=== PATIENT | male | born 1955 | race Caucasian/White ===

== ENCOUNTER 2022-11-28 12:16 | Inpatient (IN) | payer MEDICARE, BC ==
[2022-11-28] VITALS (15 sets, daily range): BP systolic 102–190; BP diastolic 65–125
[~2022-11-28] VITALS: Ht 172.7 cm; Wt 78.6 kg
[2022-11-28 16:26] LABS: ABG BASE EXCESS -4.9 mmol/L (-2.0-2.0); ABG HCO3 21.4 mmol/L (22.0-26.0); ABG OXYGEN SATURATION 87.5 % (94-97); ABG PCO2 (T) 44.3 mmHg (35.0-48.0); ABG PO2 (T) 60.6 mmHg (75.0-100.0); ALLEN'S TEST POSITIVE; FCOHb 0.3 % (0.0-3.9); FMetHb 0.5 % (0.0-1.5); FO2Hb 86.8 % (94-97); PEEP 5 cm H2O; RESPIRATORY RATE 16 b/min; TIDAL VOLUME 500 mL
[2022-11-28] MEDS: normal saline 1000ml 1,000 ML IV SCH (16:35)
[2022-11-28] MEDS ORDERED: propofol 1000mg/100ml bottle 100 ML IV SCH (16:35)
[2022-11-28] MEDS ORDERED: propofol 1000mg/100ml bottle 100 ML IV ONE (16:41)
[2022-11-28] MEDS ORDERED: labetalol 20mg/4ml (5mg/ml) syringe IV ONE ×2 (16:49→16:51)
[2022-11-28] MEDS ORDERED: labetalol 20mg/4ml (5mg/ml) syringe IV PRN (17:00)
[2022-11-28] MEDS ORDERED: POTASSIUM BICARB 20meq eff tab 20 MEQ TABLET.EFF PO PRN ×2 (17:35)
[2022-11-28] MEDS ORDERED: ondansetron/PF 4mg/2ml inj IV PRN (17:35)
[2022-11-28] MEDS ORDERED: normal saline 1000ml 1,000 ML IV SCH (17:35)
[2022-11-28] MEDS ORDERED: magnesium hydroxide 30ml (MOM) UD suspension PO PRN (17:35)
[2022-11-28] MEDS ORDERED: acetaminophen 325mg tablet PO PRN ×2 (17:35)
--- NOTE | 2022-11-28 17:44 | NUR ---
Pt arrived via [facility] approximately 1600. Pt hypertensive, hypothermic and unresponsive. Pt R pupil 5mm, brisk. L pupil 4mm, brisk. No corneal reflex. Minimal gag reflex. Pt does not w/d to pain in any extremities. Per EMS, pt was given 10mg Versed in transportation. RN notified MD of hypertension. See new orders. Addendum: 11/28/22 at 1748 by Enedina Singh RN Pt extremities cyanotic. Pt has multiple bruises on bilat flank as well as his back, BUE, and BLE. Pt has blanchable redness to coccyx and BLE heels. Pt also has blister to his L Heel. See new orders for wound care. Addendum: 11/28/22 at 1751 by Enedina Singh RN Pt arrived w/ slade diaz and DANNA bull.
[2022-11-28] MEDS ORDERED: LIDOcaine 2% 10ml TOPICAL JELLY (Urojet) TP ONE (18:07)
--- NOTE | 2022-11-28 18:34 | NUR ---
Patient in room CICU 2008. I have received report from Erum LAZAR and had the opportunity to ask questions and assume patient care.
[2022-11-28] MEDS ORDERED: TIOT18CA3 INH (19:05)
[2022-11-28] MEDS ORDERED: ZOLP-240 PO (19:05)
[2022-11-28] MEDS ORDERED: BOSU100T PO (19:05)
[2022-11-28] MEDS ORDERED: BREX1TAB PO (19:05)
[2022-11-28] MEDS ORDERED: OXYC1TAB17 PO (19:05)
[2022-11-28] MEDS ORDERED: FLUT1BLS9 INH (19:05)
[2022-11-28] MEDS ORDERED: IBUP-1986 PO (19:05)
[2022-11-28] MEDS ORDERED: LIDO700A47 TOP (19:05)
[2022-11-28] MEDS ORDERED: BACL-11 PO (19:05)
[2022-11-28] MEDS ORDERED: ZOLP10TA PO (19:05)
[2022-11-28] MEDS ORDERED: BIMA2.5D EACHEYE (19:05)
[2022-11-28] MEDS ORDERED: DULO60CA65 PO (19:05)
[2022-11-28] MEDS ORDERED: ALBU18HF2 PO (19:06)
[2022-11-28] MEDS: hydrALAZINE 20mg/ml inj. IV SCH ×2 (19:45→19:49)
[2022-11-28] MEDS: metoprolol tartrate 50mg tablet NG SCH ×2 (19:47→19:48)
[2022-11-28] MEDS: thiamine 100mg/ml 2ml inj. IV SCH (19:49)
[2022-11-28] MEDS: propofol 1000mg/100ml bottle 100 ML IV SCH (19:52)
[2022-11-28 20:15] LABS: CLARITY,URINE CLEAR (Clear); COLOR,URINE YELLOW (Yellow); GLUCOSE, URINE NEGATIVE (Neg); KETONES,URINE NEGATIVE (Neg); LEUKOCYTE ESTERASE ,URINE NEGATIVE (Neg); NITRITES, URINE NEGATIVE (Neg); OCCULT BLOOD,URINE NEGATIVE (Neg); PROTEIN,URINE NEGATIVE (Neg); UROBILINOGEN,URINE 0.2 E.U/dL (0.2-1.0)
[2022-11-28 20:16] LABS: BASOPHILS # (AUTO) 0.1 X10'3 (0-0.2); BASOPHILS % (AUTO) 0.3 % (0-1); EOSINOPHILS % (AUTO) 0 % (0-6); HEMATOCRIT 31.2 % (42.0-52.0); HEMOGLOBIN 10.2 g/dl (14.0-17.9); LYMPHOCYTES # (AUTO) 1.9 X10'3 (1.1-4.8); LYMPHOCYTES % (AUTO) 8.1 % (21-51); MEAN CORPUSCULAR HGB CONC 32.6 g/dL (33.0-36.5); MEAN CORPUSCULAR VOLUME 101.2 FL (78-98); MEAN PLATELET VOLUME 10.9 FL (7.4-10.4); MONOCYTES # (AUTO) 2.5 X10'3 (0-0.9); MONOCYTES % (AUTO) 10.6 % (2-12); NEUTROPHILS # (AUTO) 18.8 X10'3 (1.8-7.7); PLATELET COUNT 205 X10'3 (140-440); RED BLOOD COUNT 3.09 X10'6 (4.70-6.10); RED CELL DISTRIBUTION WIDTH 15.9 % (11.5-14.5); WHITE BLOOD COUNT 23.2 X10'3 (4.5-11.0)
[2022-11-28 20:20] LABS: UA COLLECTION TYPE NON-SPECIFIED
[2022-11-28 20:28] LABS: APTT 25 SECONDS (22-32)
[2022-11-28 20:31] LABS: ALANINE AMINOTRANSFERASE 73 U/L (12-78); ALBUMIN 1.9 G/DL (3.4-5.0); ALBUMIN/GLOBULIN RATIO 0.6 (1.1-1.5); ALKALINE PHOSPHATASE 58 IU/L (46-116); ANION GAP 7 (8-16); ASPARTATE AMINO TRANSFERASE 34 U/L (10-37); BILIRUBIN,TOTAL 0.2 MG/DL (0.1-1.0); BLOOD UREA NITROGEN 8 MG/DL (7-18); BUN/CREATININE RATIO 11.8 (5.4-32.0); CALCIUM 7.2 MG/DL (8.5-10.1); CHLORIDE 105 MMOL/L (99-107); CREATININE 0.68 MG/DL (0.60-1.10); GLUCOSE 121 MG/DL (70-104); MAGNESIUM 1.8 MG/DL (1.5-2.4); PHOSPHORUS 2.9 MG/DL (2.3-4.5); POTASSIUM 4.3 MMOL/L (3.5-5.1); SODIUM 137 MMOL/L (135-145); TOTAL CARBON DIOXIDE 24.6 MMOL/L (24-32); TOTAL PROTEIN 5.3 G/DL (6.4-8.2); TRIGLYCERIDES 73 MG/DL (20-135); eGFR > 90 ML/MIN
[2022-11-28] MEDS: vancomycin/NS 1 GM ADD-VANTAGE 250 ML IV SCH (21:25)
[2022-11-28] MEDS: folic acid 1mg/0.2ml inj IV SCH (21:26)
[2022-11-28 22:49] LABS: LARGE PLATELETS FEW; NUCLEATED RED BLOOD CELLS 2 /100WBC (0-0); PLATELET ESTIMATE NORMAL; TOTAL CELLS COUNTED 100
[2022-11-28 22:50] LABS: SMUDGE CELLS 1+
[2022-11-28 22:51] LABS: TARGET CELLS 2+
[2022-11-28 22:52] LABS: BURR CELLS FEW
[2022-11-28 22:53] LABS: SCHISTOCYTES FEW
[2022-11-29] VITALS (32 sets, daily range): BP systolic 97–163; BP diastolic 50–97
[2022-11-29] MEDS: cefepime 1GM/NS ADD-VANTAGE 100 ML IV SCH ×4 (00:19→23:58)
[2022-11-29] MEDS: hydrALAZINE 20mg/ml inj. IV SCH ×3 (00:19→08:00)
[2022-11-29] MEDS: normal saline 1000ml 1,000 ML IV SCH ×4 (01:45→20:53)
[2022-11-29] MEDS: metoprolol tartrate 50mg tablet NG SCH ×4 (02:04→20:46)
[2022-11-29 02:58] LABS: BASOPHILS % (AUTO) 0.1 % (0-1); EOSINOPHILS % (AUTO) 0 % (0-6); PLATELET COUNT 231 X10'3 (140-440)
[2022-11-29 03:00] LABS: HEMATOCRIT 32.5 % (42.0-52.0); HEMOGLOBIN 10.6 g/dl (14.0-17.9); LYMPHOCYTES # (AUTO) 2.6 X10'3 (1.1-4.8); LYMPHOCYTES % (AUTO) 11.9 % (21-51); MEAN CORPUSCULAR HGB CONC 32.5 g/dL (33.0-36.5); MEAN CORPUSCULAR VOLUME 101.3 FL (78-98); MEAN PLATELET VOLUME 11.5 FL (7.4-10.4); MONOCYTES % (AUTO) 13.6 % (2-12); NEUTROPHILS # (AUTO) 16.2 X10'3 (1.8-7.7); NEUTROPHILS % (AUTO) 74.4 % (42-75); RED BLOOD COUNT 3.21 X10'6 (4.70-6.10); RED CELL DISTRIBUTION WIDTH 16.2 % (11.5-14.5); WHITE BLOOD COUNT 21.8 X10'3 (4.5-11.0)
[2022-11-29 03:03] LABS: APTT 26 SECONDS (22-32)
[2022-11-29] MEDS: propofol 1000mg/100ml bottle 100 ML IV SCH (03:22)
[2022-11-29 03:26] LABS: ALANINE AMINOTRANSFERASE 70 U/L (12-78); ALBUMIN/GLOBULIN RATIO 0.6 (1.1-1.5); ALKALINE PHOSPHATASE 56 IU/L (46-116); ANION GAP 6 (8-16); ASPARTATE AMINO TRANSFERASE 32 U/L (10-37); BILIRUBIN,TOTAL 0.3 MG/DL (0.1-1.0); BLOOD UREA NITROGEN 9 MG/DL (7-18); BUN/CREATININE RATIO 12.9 (5.4-32.0); CALCIUM 7.6 MG/DL (8.5-10.1); CHLORIDE 106 MMOL/L (99-107); GLUCOSE 112 MG/DL (70-104); MAGNESIUM 1.9 MG/DL (1.5-2.4); PHOSPHORUS 2.4 MG/DL (2.3-4.5); POTASSIUM 3.9 MMOL/L (3.5-5.1); SODIUM 138 MMOL/L (135-145); TOTAL CARBON DIOXIDE 26.1 MMOL/L (24-32); TOTAL PROTEIN 5.3 G/DL (6.4-8.2); TRIGLYCERIDES 110 MG/DL (20-135); eGFR > 90 ML/MIN
[2022-11-29 03:39] LABS: ABG BASE EXCESS 1.4 mmol/L (-2.0-2.0); ABG HCO3 24.1 mmol/L (22.0-26.0); ABG OXYGEN SATURATION 92.2 % (94-97); ABG PCO2 (T) 31.4 mmHg (35.0-48.0); ABG PO2 (T) 58.6 mmHg (75.0-100.0); ALLEN'S TEST POSITIVE; FCOHb 0.3 % (0.0-3.9); FMetHb 0.3 % (0.0-1.5); FO2Hb 91.6 % (94-97); PATIENT TEMPERATURE 36.7; PEEP 5 cm H2O; RESPIRATORY RATE 16 b/min; TIDAL VOLUME 500 mL; TOTAL HEMOGLOBIN 10.9 G/dl (14.0-17.9)
--- NOTE | 2022-11-29 06:06 | NUR ---
Problems reprioritized. Patient report given, questions answered & plan of care reviewed with Erum LAZAR.
[2022-11-29] MEDS: vancomycin/NS 1 GM ADD-VANTAGE 250 ML IV SCH ×2 (07:30→20:45)
[2022-11-29] MEDS: levoFLOXACIN-Levaquin 750MG/D5 150 ML IV SCH (07:33)
[2022-11-29] MEDS: thiamine 100mg/ml 2ml inj. IV SCH ×2 (07:35→20:45)
[2022-11-29] MEDS: folic acid 1mg/0.2ml inj IV SCH (07:35)
[2022-11-29] MEDS ORDERED: MVI, adult No.4 with vit. K 10 ML in dextrose 5% water 500ml 500 ML IV SCH ×2 (08:00)
[2022-11-29] MEDS: K and/or MAG REPLACEMENT MC SCH (08:00)
--- NOTE | 2022-11-29 11:43 | NUR ---
0630 -- Propofol turned off. Neuro assessment completed at 0800. Pt has cough/gag/corneal. No w/d to pain. 0900 - Pt at bedside. Updated on pt status and GOC. RN obtained admission information from at bedside. PT informed the RN that pt WAS drinking up until the day they went into [facility], unlike the note documented on his admission history. also informed RN that pt is very combative/aggressive/non-compliant when awake. Dr. Montalvo notified of pt neuro status. No change in orders. Rounds complete. See new orders. Wound care at bedside to assess pt skin. L heel determined to be pressure injury. RN will photograph.
[2022-11-29] MEDS ORDERED: hydrALAZINE 20mg/ml inj. IV PRN (11:50)
[2022-11-29] MEDS ORDERED: acetaminophen 325mg/10.15ml oral unit dose solution NG PRN ×2 (12:01)
[2022-11-29] MEDS ORDERED: POTASSIUM BICARB 20meq eff tab 20 MEQ TABLET.EFF NG PRN (12:02)
[2022-11-29] MEDS ORDERED: magnesium hydroxide 30ml (MOM) UD suspension NG PRN (12:02)
--- NOTE | 2022-11-29 12:06 | NUR ---
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 SO not at bedside when RD present and unable to obtain information from pt d/t intubation. No scaled wt hx in EMR, first scaled wt is 124% IBW. No visible fat or muscle wasting appreciated. Pt documented with mild edema and flaccid muscle strength, though possibly r/t intubation. Pt currently lacks a minimum of two criteria for malnutrition though at a high risk r/t EtOH hx. Pt receiving routine Thiamine and Folic acid, agrees to routine MVI. Pt admit for acute respiratory failure with ALOC and bilat PNA. Per RN Propofol has been off since beginning of day shift. Will monitor for resumption of Propofol and need to adjust TF recs. Noted pt with a low Abdirizak of 10, wound care has been consulted, assessment pending at this time. Will continue to follow closely. Recommendations: 1) Continuous Vital AF via NGT with 80 mL/hr goal rate to provide 1920 mL total volume/day, 2304 kcal, 144 g protein, and 1557 mL water 2) Additional 125 mL water flush Q4H; monitor serum Na 3) Prealbumin q Monday/ 4) Daily scaled weights 5) Routine bowel care 6) Routine Thiamine, Folic acid, and MVI given EtOH hx c/elevated MCV 7) Monitor Propofol rate and adjust TF recs as appropriate; Propofol held 11/29 Addendum: 11/29/22 at [address] Amended: Links added.
[2022-11-29] MEDS: pantoprazole 40MG/NS 100ML BAG 100 ML IV SCH (12:42)
[2022-11-29] MEDS: MULTIVIT-MIN/FERROUS GLUCONATE 9 MG/15 ML LIQUID NG SCH (12:43)
--- NOTE | 2022-11-29 14:19 | NUR ---
Fax from [facility] of sputum culture given to .
[2022-11-29] MEDS: albuterol 2.5 MG/3 ML nebule NEB SCH ×2 (14:43→19:46)
[2022-11-29] MEDS: heparin, porcine 5000 units/ml vial SQ SCH ×2 (15:00→23:59)
[2022-11-29] MEDS ORDERED: insulin Lispro (HumaLOG) vial - multi-dose SQ SCH (16:40)
[2022-11-29] MEDS ORDERED: glucagon, human recombinant 1mg kit SUBCUT PRN (16:40)
[2022-11-29] MEDS ORDERED: DEXTROSE 15 GM of carb/4 tabs (each vial/BOTTLE has 4 tablets) PO PRN ×2 (16:40)
[2022-11-29] MEDS ORDERED: dextrose 50%-water 50ml dispensing syringe IV PRN (16:40)
[2022-11-29] MEDS ORDERED: dextrose 50%-water 50ml dispensing syringe IV ONE (16:44)
[2022-11-29] MEDS: dextrose 50%-water 50ml dispensing syringe IV PRN ×2 (17:22→21:08)
--- NOTE | 2022-11-29 18:45 | NUR ---
Patient in room CICU 2008. I have received report from Erum LAZAR and had the opportunity to ask questions and assume patient care.
[2022-11-29] MEDS: ipratropium 0.5 MG/2.5ML nebule IH SCH (19:47)
[2022-11-29] MEDS: insulin glargine (Lantus) pen - multi-dose SQ SCH (21:00)
[2022-11-30] VITALS (34 sets, daily range): BP systolic 126–162; BP diastolic 70–85
[2022-11-30] MEDS: albuterol 2.5 MG/3 ML nebule NEB SCH ×3 (01:04→07:16)
[2022-11-30] MEDS: ipratropium 0.5 MG/2.5ML nebule IH SCH ×3 (01:04→07:16)
[2022-11-30] MEDS: metoprolol tartrate 50mg tablet NG SCH ×4 (02:13→20:41)
[2022-11-30 02:52] LABS: BASOPHILS # (AUTO) 0.1 X10'3 (0-0.2); BASOPHILS % (AUTO) 0.6 % (0-1); EOSINOPHILS % (AUTO) 0.2 % (0-6); HEMATOCRIT 30.4 % (42.0-52.0); HEMOGLOBIN 9.9 g/dl (14.0-17.9); LYMPHOCYTES # (AUTO) 3.3 X10'3 (1.1-4.8); LYMPHOCYTES % (AUTO) 17.6 % (21-51); MEAN CORPUSCULAR HEMOGLOBIN 33.1 PG (27.0-31.0); MEAN CORPUSCULAR HGB CONC 32.7 g/dL (33.0-36.5); MEAN CORPUSCULAR VOLUME 101.1 FL (78-98); MONOCYTES # (AUTO) 2.5 X10'3 (0-0.9); MONOCYTES % (AUTO) 13.7 % (2-12); NEUTROPHILS # (AUTO) 12.6 X10'3 (1.8-7.7); NEUTROPHILS % (AUTO) 67.9 % (42-75); PLATELET COUNT 252 X10'3 (140-440); RED CELL DISTRIBUTION WIDTH 15.9 % (11.5-14.5); WHITE BLOOD COUNT 18.5 X10'3 (4.5-11.0)
[2022-11-30 03:07] LABS: APTT 25 SECONDS (22-32)
[2022-11-30 03:13] LABS: ALANINE AMINOTRANSFERASE 96 U/L (12-78); ALBUMIN 1.9 G/DL (3.4-5.0); ALBUMIN/GLOBULIN RATIO 0.6 (1.1-1.5); ALKALINE PHOSPHATASE 60 IU/L (46-116); ANION GAP 7 (8-16); ASPARTATE AMINO TRANSFERASE 68 U/L (10-37); BILIRUBIN,TOTAL 0.4 MG/DL (0.1-1.0); BLOOD UREA NITROGEN 12 MG/DL (7-18); CALCIUM 7.5 MG/DL (8.5-10.1); CHLORIDE 105 MMOL/L (99-107); CREATININE 0.75 MG/DL (0.60-1.10); GLUCOSE 108 MG/DL (70-104); MAGNESIUM 1.8 MG/DL (1.5-2.4); POTASSIUM 3.3 MMOL/L (3.5-5.1); SODIUM 137 MMOL/L (135-145); TOTAL CARBON DIOXIDE 24.7 MMOL/L (24-32); TOTAL PROTEIN 5.2 G/DL (6.4-8.2); eGFR > 90 ML/MIN
[2022-11-30 03:32] LABS: ABG BASE EXCESS -0.7 mmol/L (-2.0-2.0); ABG HCO3 22.4 mmol/L (22.0-26.0); ABG OXYGEN SATURATION 94.6 % (94-97); ABG PCO2 (T) 32.1 mmHg (35.0-48.0); ABG PO2 (T) 77.1 mmHg (75.0-100.0); ALLEN'S TEST POSITIVE; FCOHb 0.2 % (0.0-3.9); FMetHb 0.5 % (0.0-1.5); FO2Hb 93.9 % (94-97); PATIENT TEMPERATURE 37.4; PEEP 5 cm H2O; RESPIRATORY RATE 16 b/min; TIDAL VOLUME 500 mL; TOTAL HEMOGLOBIN 10.7 G/dl (14.0-17.9)
[2022-11-30] MEDS: POTASSIUM BICARB 20meq eff tab 20 MEQ TABLET.EFF NG PRN ×3 (04:15→13:29)
[2022-11-30 04:41] LABS: LARGE PLATELETS FEW; NUCLEATED RED BLOOD CELLS 2 /100WBC (0-0); PLATELET ESTIMATE NORMAL; SMUDGE CELLS 1+; TARGET CELLS 2+; TOTAL CELLS COUNTED 100
[2022-11-30 04:42] LABS: BURR CELLS FEW; SCHISTOCYTES FEW
[2022-11-30] MEDS: K and/or MAG REPLACEMENT MC SCH (06:45)
--- NOTE | 2022-11-30 06:45 | NUR ---
Problems reprioritized. Patient report given, questions answered & plan of care reviewed with Lisa LAZAR.
--- NOTE | 2022-11-30 06:47 | NUR ---
Received report from NAGI Chowdhury
[2022-11-30] MEDS: propofol 1000mg/100ml bottle 100 ML IV SCH (07:11)
[2022-11-30] MEDS: normal saline 1000ml 1,000 ML IV SCH ×2 (07:25→16:35)
[2022-11-30] MEDS ORDERED: VANCOMYCIN LEVEL IV ONE (07:30)
[2022-11-30] MEDS: levoFLOXACIN-Levaquin 750MG/D5 150 ML IV SCH (08:49)
[2022-11-30] MEDS: pantoprazole 40MG/NS 100ML BAG 100 ML IV SCH (08:49)
[2022-11-30] MEDS: folic acid 1mg/0.2ml inj IV SCH (08:49)
[2022-11-30] MEDS: VANCOmycin 1250MG/NS 250ml Bag 250 ML IV SCH ×2 (08:51→20:42)
[2022-11-30] MEDS: cefepime 1GM/NS ADD-VANTAGE 100 ML IV SCH ×2 (08:52→16:00)
[2022-11-30] MEDS: thiamine 100mg/ml 2ml inj. IV SCH ×2 (08:57→20:41)
[2022-11-30] MEDS: heparin, porcine 5000 units/ml vial SQ SCH ×2 (08:58→16:04)
[2022-11-30] MEDS: MULTIVIT-MIN/FERROUS GLUCONATE 9 MG/15 ML LIQUID NG SCH (08:58)
[2022-11-30] MEDS: ipratropium/albuterol 3ml nebule NEB SCH ×4 (10:58→23:33)
[2022-11-30] MEDS ORDERED: insulin regular, human U-100 3ml vial - multi-dose SQ SCH (11:37)
[2022-11-30] MEDS: Neutra Phos packet PO SCH ×2 (13:29→20:40)
[2022-11-30] MEDS: insulin glargine (Lantus) pen - multi-dose SQ SCH (21:00)
[2022-12-01] VITALS (35 sets, daily range): BP systolic 123–166; BP diastolic 66–88
[2022-12-01] MEDS: heparin, porcine 5000 units/ml vial SQ SCH ×3 (00:28→15:43)
[2022-12-01] MEDS: cefepime 1GM/NS ADD-VANTAGE 100 ML IV SCH ×3 (00:29→15:43)
[2022-12-01] MEDS: metoprolol tartrate 50mg tablet NG SCH ×4 (02:03→20:29)
[2022-12-01 02:51] LABS: BASOPHILS # (AUTO) 0.1 X10'3 (0-0.2); BASOPHILS % (AUTO) 0.4 % (0-1); EOSINOPHILS # (AUTO) 0.1 X10'3 (0-0.9); EOSINOPHILS % (AUTO) 0.4 % (0-6); HEMATOCRIT 29.8 % (42.0-52.0); HEMOGLOBIN 9.7 g/dl (14.0-17.9); LYMPHOCYTES # (AUTO) 2.4 X10'3 (1.1-4.8); LYMPHOCYTES % (AUTO) 15.2 % (21-51); MEAN CORPUSCULAR HEMOGLOBIN 32.8 PG (27.0-31.0); MEAN CORPUSCULAR HGB CONC 32.7 g/dL (33.0-36.5); MEAN CORPUSCULAR VOLUME 100.4 FL (78-98); MEAN PLATELET VOLUME 10.8 FL (7.4-10.4); MONOCYTES # (AUTO) 2.6 X10'3 (0-0.9); NEUTROPHILS # (AUTO) 10.9 X10'3 (1.8-7.7); PLATELET COUNT 248 X10'3 (140-440); RED BLOOD COUNT 2.97 X10'6 (4.70-6.10); RED CELL DISTRIBUTION WIDTH 15.8 % (11.5-14.5)
[2022-12-01 03:05] LABS: ALANINE AMINOTRANSFERASE 193 U/L (12-78); ALBUMIN 1.7 G/DL (3.4-5.0); ALBUMIN/GLOBULIN RATIO 0.5 (1.1-1.5); ALKALINE PHOSPHATASE 76 IU/L (46-116); ANION GAP 4 (8-16); ASPARTATE AMINO TRANSFERASE 131 U/L (10-37); BILIRUBIN,TOTAL 0.5 MG/DL (0.1-1.0); BLOOD UREA NITROGEN 10 MG/DL (7-18); BUN/CREATININE RATIO 12.8 (5.4-32.0); CALCIUM 7.6 MG/DL (8.5-10.1); CHLORIDE 104 MMOL/L (99-107); CREATININE 0.78 MG/DL (0.60-1.10); GLUCOSE 117 MG/DL (70-104); MAGNESIUM 1.7 MG/DL (1.5-2.4); PHOSPHORUS 3.1 MG/DL (2.3-4.5); POTASSIUM 3.6 MMOL/L (3.5-5.1); PREALBUMIN 16.3 MG/DL (19-36); SODIUM 135 MMOL/L (135-145); TOTAL PROTEIN 5.1 G/DL (6.4-8.2); TRIGLYCERIDES 92 MG/DL (20-135); eGFR > 90 ML/MIN
[2022-12-01 03:59] LABS: ABG BASE EXCESS 0.3 mmol/L (-2.0-2.0); ABG HCO3 23.2 mmol/L (22.0-26.0); ABG PO2 (T) 79.8 mmHg (75.0-100.0); ALLEN'S TEST POSITIVE; FCOHb 0.2 % (0.0-3.9); FMetHb 0.3 % (0.0-1.5); FO2Hb 94.5 % (94-97); PATIENT TEMPERATURE 37.4; PEEP 5 cm H2O; RESPIRATORY RATE 16 b/min; TIDAL VOLUME 500 mL; TOTAL HEMOGLOBIN 10.7 G/dl (14.0-17.9)
[2022-12-01] MEDS: ipratropium/albuterol 3ml nebule NEB SCH ×6 (04:08→23:05)
[2022-12-01 04:43] LABS: APTT 26 SECONDS (22-32)
[2022-12-01] MEDS: MULTIVIT-MIN/FERROUS GLUCONATE 9 MG/15 ML LIQUID NG SCH (07:58)
[2022-12-01] MEDS: pantoprazole 40MG/NS 100ML BAG 100 ML IV SCH (07:59)
[2022-12-01] MEDS: Neutra Phos packet PO SCH ×3 (07:59→20:29)
[2022-12-01] MEDS: thiamine 100mg/ml 2ml inj. IV SCH ×2 (07:59→20:29)
[2022-12-01] MEDS: levoFLOXACIN-Levaquin 750MG/D5 150 ML IV SCH (07:59)
[2022-12-01] MEDS: K and/or MAG REPLACEMENT MC SCH (08:00)
[2022-12-01] MEDS: folic acid 1mg/0.2ml inj IV SCH (08:01)
[2022-12-01] MEDS: VANCOmycin 1250MG/NS 250ml Bag 250 ML IV SCH ×2 (08:01→20:29)
[2022-12-01] MEDS ORDERED: albumin (human) 25% 100 ML IV solution IV ONE (08:30)
[2022-12-01] MEDS: normal saline 1000ml 1,000 ML IV SCH ×3 (08:35→13:00)
--- NOTE | 2022-12-01 13:22 | NUR ---
Abdirizak f/u: Abdirizak Bush w/ L heel DTI per [facility] note; TF recs below meeting estimated needs. Addendum: 12/01/22 at [address] Amended: Links added.
[2022-12-01] MEDS ORDERED: VANCOMYCIN LEVEL IV ONE (20:30)
[2022-12-02] VITALS (34 sets, daily range): BP systolic 124–168; BP diastolic 66–86
[2022-12-02] MEDS: heparin, porcine 5000 units/ml vial SQ SCH ×4 (00:13→23:15)
[2022-12-02] MEDS: cefepime 1GM/NS ADD-VANTAGE 100 ML IV SCH ×4 (00:14→23:14)
[2022-12-02] MEDS ORDERED: albumin (human) 25% 100 ML IV solution IV ONE (00:30)
[2022-12-02] MEDS: metoprolol tartrate 50mg tablet NG SCH ×4 (01:50→20:20)
[2022-12-02] MEDS: ipratropium/albuterol 3ml nebule NEB SCH ×6 (02:36→23:06)
[2022-12-02 02:37] LABS: EOSINOPHILS # (AUTO) 0.1 X10'3 (0-0.9); EOSINOPHILS % (AUTO) 0.5 % (0-6); HEMOGLOBIN 8.7 g/dl (14.0-17.9); MEAN PLATELET VOLUME 10.8 FL (7.4-10.4); NEUTROPHILS # (AUTO) 15.1 X10'3 (1.8-7.7)
[2022-12-02 02:39] LABS: BASOPHILS % (AUTO) 0.2 % (0-1); HEMATOCRIT 25.7 % (42.0-52.0); LYMPHOCYTES # (AUTO) 3.4 X10'3 (1.1-4.8); LYMPHOCYTES % (AUTO) 15.8 % (21-51); MEAN CORPUSCULAR HEMOGLOBIN 33.8 PG (27.0-31.0); MEAN CORPUSCULAR HGB CONC 33.8 g/dL (33.0-36.5); MEAN CORPUSCULAR VOLUME 100.2 FL (78-98); MONOCYTES # (AUTO) 2.7 X10'3 (0-0.9); MONOCYTES % (AUTO) 12.7 % (2-12); NEUTROPHILS % (AUTO) 70.8 % (42-75); PLATELET COUNT 256 X10'3 (140-440); RED BLOOD COUNT 2.57 X10'6 (4.70-6.10); RED CELL DISTRIBUTION WIDTH 15.3 % (11.5-14.5); WHITE BLOOD COUNT 21.3 X10'3 (4.5-11.0)
[2022-12-02 02:47] LABS: APTT 27 SECONDS (22-32)
[2022-12-02 02:54] LABS: ALANINE AMINOTRANSFERASE 185 U/L (12-78); ALBUMIN 2.8 G/DL (3.4-5.0); ALBUMIN/GLOBULIN RATIO 0.9 (1.1-1.5); ALKALINE PHOSPHATASE 80 IU/L (46-116); ANION GAP 9 (8-16); ASPARTATE AMINO TRANSFERASE 96 U/L (10-37); BILIRUBIN,TOTAL 0.6 MG/DL (0.1-1.0); BLOOD UREA NITROGEN 12 MG/DL (7-18); BUN/CREATININE RATIO 14.8 (5.4-32.0); CALCIUM 8.2 MG/DL (8.5-10.1); CHLORIDE 101 MMOL/L (99-107); CREATININE 0.81 MG/DL (0.60-1.10); GLUCOSE 121 MG/DL (70-104); MAGNESIUM 1.6 MG/DL (1.5-2.4); PHOSPHORUS 3.5 MG/DL (2.3-4.5); POTASSIUM 3.9 MMOL/L (3.5-5.1); SODIUM 135 MMOL/L (135-145); TOTAL CARBON DIOXIDE 25.5 MMOL/L (24-32); TOTAL PROTEIN 5.8 G/DL (6.4-8.2); eGFR > 90 ML/MIN
[2022-12-02 03:33] LABS: ABG BASE EXCESS 0.8 mmol/L (-2.0-2.0); ABG HCO3 23.6 mmol/L (22.0-26.0); ABG OXYGEN SATURATION 92.7 % (94-97); ABG PCO2 (T) 31.9 mmHg (35.0-48.0); ALLEN'S TEST Modified; FCOHb 0.3 % (0.0-3.9); FMetHb 0.4 % (0.0-1.5); FO2Hb 92.1 % (94-97); PATIENT TEMPERATURE 37.4; PEEP 5 cm H2O; RESPIRATORY RATE 16 b/min; TIDAL VOLUME 500 mL; TOTAL HEMOGLOBIN 9.5 G/dl (14.0-17.9)
[2022-12-02 03:52] LABS: GIANT PLATELET FEW; NUCLEATED RED BLOOD CELLS 3 /100WBC (0-0); PLATELET ESTIMATE NORMAL; TOTAL CELLS COUNTED 100
[2022-12-02 03:53] LABS: BURR CELLS FEW; LARGE PLATELETS FEW; SCHISTOCYTES FEW
[2022-12-02] MEDS: levoFLOXACIN-Levaquin 750MG/D5 150 ML IV SCH (08:00)
[2022-12-02] MEDS: normal saline 1000ml 1,000 ML IV SCH ×3 (09:00→19:18)
[2022-12-02] MEDS: thiamine 100mg/ml 2ml inj. IV SCH ×2 (09:00→20:20)
[2022-12-02] MEDS: MULTIVIT-MIN/FERROUS GLUCONATE 9 MG/15 ML LIQUID NG SCH (09:01)
[2022-12-02] MEDS: Neutra Phos packet PO SCH ×3 (09:01→20:20)
[2022-12-02] MEDS: folic acid 1mg/0.2ml inj IV SCH (09:01)
[2022-12-02] MEDS: VANCOmycin 1250MG/NS 250ml Bag 250 ML IV SCH ×2 (09:01→20:20)
[2022-12-02] MEDS: pantoprazole 40MG/NS 100ML BAG 100 ML IV SCH (09:02)
[2022-12-02] MEDS ORDERED: DEXTROSE 15 GM of carb/4 tabs (each vial/BOTTLE has 4 tablets) NG PRN ×2 (11:50)
--- NOTE | 2022-12-02 12:02 | NUR ---
F/u 12/02: Pt remains intubated tolerating TF at goal GRV WNL. Rectal tube -400ml output per EMR. Will continue to monitor. Recommendations: 1) Continuous Vital AF via NGT with 80 mL/hr goal rate to provide 1920 mL total volume/day, 2304 kcal, 144 g protein, and 1557 mL water 2) Additional 125 mL water flush Q4H; monitor serum Na 3) Prealbumin q Monday/ 4) Daily scaled weights 5) Routine bowel care 6) Routine Thiamine, Folic acid, and MVI given EtOH hx c/elevated MCV Addendum: 12/02/22 at [address] Amended: Links added.
[2022-12-02] MEDS: progesterone, micronized 100mg capsule PO SCH (13:38)
[2022-12-02] MEDS: acetaZOLAMIDE IV 500mg inj IV SCH (13:39)
[2022-12-02] MEDS: caffeine citrate injection 60 MG in dextrose 5%-water 50ml 50 ML IV SCH ×2 (16:00→23:14)
[2022-12-03] VITALS (32 sets, daily range): BP systolic 92–151; BP diastolic 47–82
[2022-12-03] MEDS: metoprolol tartrate 50mg tablet NG SCH ×4 (02:00→21:07)
[2022-12-03] MEDS: ipratropium/albuterol 3ml nebule NEB SCH ×6 (02:42→23:08)
[2022-12-03 02:52] LABS: ABG BASE EXCESS -6.9 mmol/L (-2.0-2.0); ABG HCO3 16.7 mmol/L (22.0-26.0); ABG OXYGEN SATURATION 94.8 % (94-97); ABG PCO2 (T) 27.9 mmHg (35.0-48.0); ABG PO2 (T) 81.1 mmHg (75.0-100.0); ALLEN'S TEST Modified; FCOHb 0.3 % (0.0-3.9); FMetHb 0.4 % (0.0-1.5); FO2Hb 94.1 % (94-97); PEEP 5 cm H2O; RESPIRATORY RATE 14 b/min; TIDAL VOLUME 500 mL; TOTAL HEMOGLOBIN 11.3 G/dl (14.0-17.9)
[2022-12-03 03:22] LABS: EOSINOPHILS # (AUTO) 0.2 X10'3 (0-0.9); HEMOGLOBIN 9.5 g/dl (14.0-17.9); MEAN PLATELET VOLUME 10.4 FL (7.4-10.4)
[2022-12-03 03:24] LABS: BASOPHILS % (AUTO) 0.2 % (0-1); EOSINOPHILS % (AUTO) 0.8 % (0-6); HEMATOCRIT 28.4 % (42.0-52.0); LYMPHOCYTES # (AUTO) 3.9 X10'3 (1.1-4.8); LYMPHOCYTES % (AUTO) 16.4 % (21-51); MEAN CORPUSCULAR HEMOGLOBIN 34.1 PG (27.0-31.0); MEAN CORPUSCULAR HGB CONC 33.6 g/dL (33.0-36.5); MEAN CORPUSCULAR VOLUME 101.4 FL (78-98); MONOCYTES # (AUTO) 2.9 X10'3 (0-0.9); MONOCYTES % (AUTO) 12.1 % (2-12); NEUTROPHILS # (AUTO) 16.7 X10'3 (1.8-7.7); NEUTROPHILS % (AUTO) 70.5 % (42-75); PLATELET COUNT 338 X10'3 (140-440); RED CELL DISTRIBUTION WIDTH 15.8 % (11.5-14.5); WHITE BLOOD COUNT 23.6 X10'3 (4.5-11.0)
[2022-12-03 03:29] LABS: APTT 27 SECONDS (22-32)
[2022-12-03 03:34] LABS: ALANINE AMINOTRANSFERASE 191 U/L (12-78); ALBUMIN 2.6 G/DL (3.4-5.0); ALBUMIN/GLOBULIN RATIO 0.7 (1.1-1.5); ALKALINE PHOSPHATASE 91 IU/L (46-116); ANION GAP 9 (8-16); ASPARTATE AMINO TRANSFERASE 90 U/L (10-37); BILIRUBIN,TOTAL 0.5 MG/DL (0.1-1.0); BLOOD UREA NITROGEN 16 MG/DL (7-18); BUN/CREATININE RATIO 16.8 (5.4-32.0); CALCIUM 8.4 MG/DL (8.5-10.1); CHLORIDE 107 MMOL/L (99-107); CREATININE 0.95 MG/DL (0.60-1.10); GLUCOSE 122 MG/DL (70-104); MAGNESIUM 1.6 MG/DL (1.5-2.4); PHOSPHORUS 3.4 MG/DL (2.3-4.5); POTASSIUM 3.9 MMOL/L (3.5-5.1); SODIUM 135 MMOL/L (135-145); TOTAL CARBON DIOXIDE 19.2 MMOL/L (24-32); TOTAL PROTEIN 6.2 G/DL (6.4-8.2); eGFR 79 ML/MIN
[2022-12-03] MEDS: VANCOmycin 1250MG/NS 250ml Bag 250 ML IV SCH ×2 (07:29→21:08)
[2022-12-03] MEDS: pantoprazole 40MG/NS 100ML BAG 100 ML IV SCH (07:29)
[2022-12-03] MEDS: cefepime 1GM/NS ADD-VANTAGE 100 ML IV SCH ×3 (07:30→23:58)
[2022-12-03] MEDS: caffeine citrate injection 60 MG in dextrose 5%-water 50ml 50 ML IV SCH ×3 (07:32→23:35)
[2022-12-03] MEDS: folic acid 1mg/0.2ml inj IV SCH (07:57)
[2022-12-03] MEDS: levoFLOXACIN-Levaquin 750MG/D5 150 ML IV SCH (07:59)
[2022-12-03] MEDS: acetaZOLAMIDE IV 500mg inj IV SCH (07:59)
[2022-12-03] MEDS: progesterone, micronized 100mg capsule PO SCH (07:59)
[2022-12-03] MEDS: thiamine 100mg/ml 2ml inj. IV SCH ×2 (08:00→21:08)
[2022-12-03] MEDS: heparin, porcine 5000 units/ml vial SQ SCH ×3 (08:00→23:36)
[2022-12-03] MEDS: Neutra Phos packet PO SCH ×3 (08:00→21:08)
[2022-12-03] MEDS: MULTIVIT-MIN/FERROUS GLUCONATE 9 MG/15 ML LIQUID NG SCH (08:00)
[2022-12-03] MEDS ORDERED: LORazepam 2 mg/ml vial IM ONE (09:50)
[2022-12-03] MEDS ORDERED: LORazepam 2 mg/ml vial ONE (09:58)
[2022-12-03] MEDS: dexmedetomidine inj. 400 MCG in normal saline 100ml IV soln 96 ML IV SCH ×2 (11:00→21:09)
[2022-12-03] MEDS: normal saline 1000ml 1,000 ML IV SCH ×2 (11:00→20:18)
[2022-12-03 15:51] LABS: ABG BASE EXCESS -7.2 mmol/L (-2.0-2.0); ABG HCO3 15.9 mmol/L (22.0-26.0); ABG OXYGEN SATURATION 94.5 % (94-97); ABG PCO2 (T) 25.8 mmHg (35.0-48.0); ABG PO2 (T) 78.8 mmHg (75.0-100.0); ALLEN'S TEST POSITIVE; FCOHb 0.3 % (0.0-3.9); FMetHb 0.5 % (0.0-1.5); FO2Hb 93.7 % (94-97); PATIENT TEMPERATURE 37.5; PEEP 5 cm H2O; RESPIRATORY RATE 14 b/min; TIDAL VOLUME 500 mL; TOTAL HEMOGLOBIN 11.2 G/dl (14.0-17.9)
--- NOTE | 2022-12-03 18:30 | NUR ---
Patient in room CICU 2007. I have received report from Mt LAZAR and had the opportunity to ask questions and assume patient care.
[2022-12-03] MEDS: insulin glargine (Lantus) pen - multi-dose SQ SCH ×3 (19:40→21:00)
[2022-12-04] VITALS (28 sets, daily range): BP systolic 95–128; BP diastolic 58–79
[2022-12-04] MEDS: metoprolol tartrate 50mg tablet NG SCH ×4 (02:27→21:04)
[2022-12-04 03:02] LABS: BASOPHILS # (AUTO) 0.1 X10'3 (0-0.2); BASOPHILS % (AUTO) 0.2 % (0-1); EOSINOPHILS # (AUTO) 0.2 X10'3 (0-0.9); HEMATOCRIT 28.8 % (42.0-52.0); HEMOGLOBIN 9.6 g/dl (14.0-17.9); LYMPHOCYTES # (AUTO) 3.7 X10'3 (1.1-4.8); LYMPHOCYTES % (AUTO) 15.9 % (21-51); MEAN CORPUSCULAR HEMOGLOBIN 34.2 PG (27.0-31.0); MEAN CORPUSCULAR HGB CONC 33.4 g/dL (33.0-36.5); MEAN CORPUSCULAR VOLUME 102.1 FL (78-98); MEAN PLATELET VOLUME 9.7 FL (7.4-10.4); MONOCYTES # (AUTO) 2.7 X10'3 (0-0.9); MONOCYTES % (AUTO) 11.7 % (2-12); NEUTROPHILS # (AUTO) 16.7 X10'3 (1.8-7.7); NEUTROPHILS % (AUTO) 71.2 % (42-75); PLATELET COUNT 389 X10'3 (140-440); RED BLOOD COUNT 2.82 X10'6 (4.70-6.10); RED CELL DISTRIBUTION WIDTH 16.3 % (11.5-14.5); WHITE BLOOD COUNT 23.4 X10'3 (4.5-11.0)
[2022-12-04] MEDS: ipratropium/albuterol 3ml nebule NEB SCH ×6 (03:03→23:16)
[2022-12-04 03:15] LABS: APTT 27 SECONDS (22-32)
[2022-12-04 03:18] LABS: ALANINE AMINOTRANSFERASE 229 U/L (12-78); ALBUMIN 2.6 G/DL (3.4-5.0); ALBUMIN/GLOBULIN RATIO 0.7 (1.1-1.5); ALKALINE PHOSPHATASE 108 IU/L (46-116); ANION GAP 11 (8-16); ASPARTATE AMINO TRANSFERASE 98 U/L (10-37); BILIRUBIN,TOTAL 0.4 MG/DL (0.1-1.0); BLOOD UREA NITROGEN 26 MG/DL (7-18); CALCIUM 8.6 MG/DL (8.5-10.1); CHLORIDE 104 MMOL/L (99-107); CREATININE 1.04 MG/DL (0.60-1.10); GLUCOSE 128 MG/DL (70-104); MAGNESIUM 1.7 MG/DL (1.5-2.4); PHOSPHORUS 4.9 MG/DL (2.3-4.5); POTASSIUM 4.6 MMOL/L (3.5-5.1); SODIUM 132 MMOL/L (135-145); TOTAL CARBON DIOXIDE 16.6 MMOL/L (24-32); TOTAL PROTEIN 6.4 G/DL (6.4-8.2); eGFR 71 ML/MIN
[2022-12-04 03:25] LABS: ABG BASE EXCESS -8.4 mmol/L (-2.0-2.0); ABG HCO3 15.6 mmol/L (22.0-26.0); ABG OXYGEN SATURATION 93.7 % (94-97); ABG PCO2 (T) 27.5 mmHg (35.0-48.0); ABG PO2 (T) 75.8 mmHg (75.0-100.0); ALLEN'S TEST Modified; FCOHb 0.3 % (0.0-3.9); FMetHb 0.3 % (0.0-1.5); FO2Hb 93.1 % (94-97); PATIENT TEMPERATURE 36.9; PEEP 5 cm H2O; RESPIRATORY RATE 14 b/min; TIDAL VOLUME 500 mL; TOTAL HEMOGLOBIN 10.4 G/dl (14.0-17.9)
[2022-12-04] MEDS: normal saline 1000ml 1,000 ML IV SCH ×3 (03:34→21:18)
[2022-12-04 04:07] LABS: TOTAL CELLS COUNTED 100
[2022-12-04 04:08] LABS: ANISOCYTOSIS 1+; PLATELET ESTIMATE NORMAL
[2022-12-04 04:09] LABS: LARGE PLATELETS MODERATE
--- NOTE | 2022-12-04 06:18 | NUR ---
Problems reprioritized. Patient report given, questions answered & plan of care reviewed with Ankur LAZAR.
[2022-12-04] MEDS: cefepime 1GM/NS ADD-VANTAGE 100 ML IV SCH ×2 (07:23→15:47)
[2022-12-04] MEDS: pantoprazole 40MG/NS 100ML BAG 100 ML IV SCH (07:24)
[2022-12-04] MEDS: dexmedetomidine inj. 400 MCG in normal saline 100ml IV soln 96 ML IV SCH (07:24)
[2022-12-04] MEDS: caffeine citrate injection 60 MG in dextrose 5%-water 50ml 50 ML IV SCH (07:24)
[2022-12-04] MEDS: VANCOmycin 1250MG/NS 250ml Bag 250 ML IV SCH ×2 (07:24→21:04)
[2022-12-04] MEDS: thiamine 100mg/ml 2ml inj. IV SCH ×2 (07:25→21:04)
[2022-12-04] MEDS: Neutra Phos packet PO SCH (07:25)
[2022-12-04] MEDS: heparin, porcine 5000 units/ml vial SQ SCH ×2 (07:26→15:47)
[2022-12-04] MEDS: MULTIVIT-MIN/FERROUS GLUCONATE 9 MG/15 ML LIQUID NG SCH (07:40)
[2022-12-04] MEDS: folic acid 1mg/0.2ml inj IV SCH (07:40)
[2022-12-04] MEDS: levoFLOXACIN-Levaquin 750MG/D5 150 ML IV SCH (07:40)
[2022-12-04 12:33] LABS: CLARITY,URINE CLEAR (Clear); COLOR,URINE YELLOW (Yellow); GLUCOSE, URINE NEGATIVE (Neg); KETONES,URINE NEGATIVE (Neg); LEUKOCYTE ESTERASE ,URINE NEGATIVE (Neg); NITRITES, URINE NEGATIVE (Neg); OCCULT BLOOD,URINE TRACE-INTACT (Neg); PROTEIN,URINE NEGATIVE (Neg); UROBILINOGEN,URINE 0.2 E.U/dL (0.2-1.0)
[2022-12-04 12:36] LABS: UA COLLECTION TYPE NON-SPECIFIED
[2022-12-04 12:42] LABS: SQUAMOUS EPITHELIAL CELL,UR NONE SEEN /LPF (FEW)
[2022-12-04 12:44] LABS: BACTERIA,URINE FEW /HPF (Neg); RBC,URINE 0-2 /HPF (0-2); WBC,URINE 0-4 /HPF (0-4); YEAST FEW /HPF (NEGATIVE)
[2022-12-04 12:56] LABS: TOTAL PROTEIN,URINE RANDOM 19.3 MG/DL
[2022-12-04 13:11] LABS: UA EOSINOPHILS FEW EOS /HPF
--- NOTE | 2022-12-04 18:13 | NUR ---
Patient in room CICU 2007. I have received report from Ankur LAZAR and had the opportunity to ask questions and assume patient care.
[2022-12-04] MEDS: insulin glargine (Lantus) pen - multi-dose SQ SCH (21:00)
[2022-12-05] VITALS (32 sets, daily range): BP systolic 77–136; BP diastolic 42–77
[2022-12-05] MEDS: heparin, porcine 5000 units/ml vial SQ SCH ×4 (00:03→23:07)
[2022-12-05] MEDS: cefepime 1GM/NS ADD-VANTAGE 100 ML IV SCH ×4 (00:03→23:07)
[2022-12-05 01:17] LABS: ABG BASE EXCESS -9.2 mmol/L (-2.0-2.0); ABG HCO3 14.5 mmol/L (22.0-26.0); ABG OXYGEN SATURATION 95.9 % (94-97); ABG PCO2 (T) 25.9 mmHg (35.0-48.0); ABG PO2 (T) 89.3 mmHg (75.0-100.0); ALLEN'S TEST Modified; FCOHb 0.3 % (0.0-3.9); FMetHb 0.4 % (0.0-1.5); FO2Hb 95.2 % (94-97); PATIENT TEMPERATURE 37.6; PEEP 5 cm H2O; RESPIRATORY RATE 14 b/min; TIDAL VOLUME 500 mL; TOTAL HEMOGLOBIN 10.9 G/dl (14.0-17.9)
[2022-12-05] MEDS ORDERED: sodium bicarbonate (8.4%) 1 mEq/ml syringe IV ONE (01:35)
--- NOTE | 2022-12-05 01:35 | NUR ---
0126: MD Silva notified regarding patient's consistent respiratory rate in 40s. Notified MD of ABG results just drawn (pH 7.3, HCO3 14.5). Orders received. Will follow MD orders.
[2022-12-05] MEDS ORDERED: sodium bicarbonate (8.4%) inj. 1 MEQ/ML ML ONE ×2 (01:42→01:43)
[2022-12-05] MEDS: dexmedetomidine inj. 400 MCG in normal saline 100ml IV soln 96 ML IV SCH ×3 (01:47→21:17)
[2022-12-05] MEDS: metoprolol tartrate 50mg tablet NG SCH ×4 (02:05→19:11)
[2022-12-05 03:12] LABS: BASOPHILS # (AUTO) 0.1 X10'3 (0-0.2); BASOPHILS % (AUTO) 0.5 % (0-1); EOSINOPHILS # (AUTO) 0.2 X10'3 (0-0.9); EOSINOPHILS % (AUTO) 0.7 % (0-6); HEMATOCRIT 30.2 % (42.0-52.0); HEMOGLOBIN 9.9 g/dl (14.0-17.9); LYMPHOCYTES # (AUTO) 3.6 X10'3 (1.1-4.8); LYMPHOCYTES % (AUTO) 14.6 % (21-51); MEAN CORPUSCULAR HEMOGLOBIN 33.6 PG (27.0-31.0); MEAN CORPUSCULAR HGB CONC 32.8 g/dL (33.0-36.5); MEAN CORPUSCULAR VOLUME 102.5 FL (78-98); MEAN PLATELET VOLUME 9.8 FL (7.4-10.4); MONOCYTES # (AUTO) 3.2 X10'3 (0-0.9); MONOCYTES % (AUTO) 12.9 % (2-12); NEUTROPHILS # (AUTO) 17.8 X10'3 (1.8-7.7); NEUTROPHILS % (AUTO) 71.3 % (42-75); PLATELET COUNT 448 X10'3 (140-440); RED BLOOD COUNT 2.95 X10'6 (4.70-6.10); RED CELL DISTRIBUTION WIDTH 16.4 % (11.5-14.5); WHITE BLOOD COUNT 24.9 X10'3 (4.5-11.0)
[2022-12-05 03:15] LABS: APTT 27 SECONDS (22-32)
[2022-12-05] MEDS: ipratropium/albuterol 3ml nebule NEB SCH ×6 (03:20→23:04)
[2022-12-05 03:22] LABS: ALANINE AMINOTRANSFERASE 252 U/L (12-78); ALBUMIN 2.6 G/DL (3.4-5.0); ALBUMIN/GLOBULIN RATIO 0.6 (1.1-1.5); ALKALINE PHOSPHATASE 130 IU/L (46-116); ANION GAP 10 (8-16); ASPARTATE AMINO TRANSFERASE 124 U/L (10-37); BILIRUBIN,TOTAL 0.5 MG/DL (0.1-1.0); BLOOD UREA NITROGEN 27 MG/DL (7-18); CALCIUM 8.5 MG/DL (8.5-10.1); CHLORIDE 104 MMOL/L (99-107); CREATININE 1.08 MG/DL (0.60-1.10); GLUCOSE 125 MG/DL (70-104); MAGNESIUM 1.8 MG/DL (1.5-2.4); PHOSPHORUS 3.7 MG/DL (2.3-4.5); POTASSIUM 4.6 MMOL/L (3.5-5.1); SODIUM 133 MMOL/L (135-145); TOTAL CARBON DIOXIDE 19.3 MMOL/L (24-32); TOTAL PROTEIN 6.8 G/DL (6.4-8.2); TRIGLYCERIDES 97 MG/DL (20-135); eGFR 68 ML/MIN
[2022-12-05 04:21] LABS: TOTAL CELLS COUNTED 100
[2022-12-05 04:22] LABS: ANISOCYTOSIS 1+; PLATELET ESTIMATE INCREASED
[2022-12-05 04:23] LABS: TARGET CELLS 1+
[2022-12-05 04:24] LABS: BURR CELLS 1+
--- NOTE | 2022-12-05 06:15 | NUR ---
Problems reprioritized. Patient report given, questions answered & plan of care reviewed with Anukr LAZAR.
[2022-12-05] MEDS: pantoprazole 40MG/NS 100ML BAG 100 ML IV SCH (08:07)
[2022-12-05] MEDS: VANCOmycin 1250MG/NS 250ml Bag 250 ML IV SCH (08:07)
[2022-12-05] MEDS: MULTIVIT-MIN/FERROUS GLUCONATE 9 MG/15 ML LIQUID NG SCH (08:07)
[2022-12-05] MEDS: folic acid 1mg/0.2ml inj IV SCH (08:07)
[2022-12-05] MEDS: thiamine 100mg/ml 2ml inj. IV SCH ×2 (08:07→19:12)
[2022-12-05] MEDS: levoFLOXACIN-Levaquin 750MG/D5 150 ML IV SCH (08:07)
--- NOTE | 2022-12-05 11:19 | NUR ---
F/u 12/05: Pt remains intubated tolerating TF at goal GRV WNL. Rectal tube -650ml yesterday w/ 100ml visualized this AM during rounds. Water flushes stopped per MD given low serum Na yesterday per RN at rounds. Pt remains on thiamine, folic acid, and MVI for etoh hx. Will monitor for further nutrition intervention needs this admit. Recommendations: 1) Continuous Vital AF via NGT with 80 mL/hr goal rate to provide 1920 mL total volume/day, 2304 kcal, 144 g protein, and 1557 mL water 2) Additional water flush per home weatherizing worker; monitor serum Na 3) Prealbumin q Monday/; Daily scaled weights 4) Routine bowel care 5) Routine Thiamine, Folic acid, and MVI given EtOH hx w/ elevated MCV Addendum: 12/05/22 at [address] Amended: Links added.
[2022-12-05] MEDS: sodium bicarbonate 1meq/ml inj 150 ML in dextrose 5%-water 850 ML IV SCH ×2 (11:39→23:06)
--- NOTE | 2022-12-05 18:10 | NUR ---
Patient in room CICU 2007. I have received report from Ankur LAZAR and had the opportunity to ask questions and assume patient care.
[2022-12-05] MEDS: insulin glargine (Lantus) pen - multi-dose SQ SCH (20:59)
[2022-12-06] VITALS (34 sets, daily range): BP systolic 92–145; BP diastolic 50–86
[2022-12-06] MEDS: metoprolol tartrate 50mg tablet NG SCH ×4 (02:03→21:39)
[2022-12-06 02:39] LABS: BASOPHILS # (AUTO) 0.1 X10'3 (0-0.2); BASOPHILS % (AUTO) 0.6 % (0-1); EOSINOPHILS # (AUTO) 0.3 X10'3 (0-0.9); EOSINOPHILS % (AUTO) 1.1 % (0-6); HEMATOCRIT 26.1 % (42.0-52.0); HEMOGLOBIN 8.7 g/dl (14.0-17.9); LYMPHOCYTES # (AUTO) 3.1 X10'3 (1.1-4.8); LYMPHOCYTES % (AUTO) 13.3 % (21-51); MEAN CORPUSCULAR HEMOGLOBIN 33.5 PG (27.0-31.0); MEAN CORPUSCULAR HGB CONC 33.3 g/dL (33.0-36.5); MEAN CORPUSCULAR VOLUME 100.8 FL (78-98); MEAN PLATELET VOLUME 9.3 FL (7.4-10.4); MONOCYTES # (AUTO) 3.6 X10'3 (0-0.9); MONOCYTES % (AUTO) 15.4 % (2-12); NEUTROPHILS # (AUTO) 16.1 X10'3 (1.8-7.7); NEUTROPHILS % (AUTO) 69.6 % (42-75); PLATELET COUNT 412 X10'3 (140-440); RED BLOOD COUNT 2.58 X10'6 (4.70-6.10); RED CELL DISTRIBUTION WIDTH 15.8 % (11.5-14.5); WHITE BLOOD COUNT 23.2 X10'3 (4.5-11.0)
[2022-12-06 02:52] LABS: APTT 26 SECONDS (22-32)
[2022-12-06 02:54] LABS: ALANINE AMINOTRANSFERASE 200 U/L (12-78); ALBUMIN 2.3 G/DL (3.4-5.0); ALBUMIN/GLOBULIN RATIO 0.6 (1.1-1.5); ALKALINE PHOSPHATASE 117 IU/L (46-116); ANION GAP 10 (8-16); ASPARTATE AMINO TRANSFERASE 84 U/L (10-37); BILIRUBIN,TOTAL 0.4 MG/DL (0.1-1.0); BLOOD UREA NITROGEN 24 MG/DL (7-18); BUN/CREATININE RATIO 24.7 (5.4-32.0); CALCIUM 8.7 MG/DL (8.5-10.1); CHLORIDE 102 MMOL/L (99-107); CREATININE 0.97 MG/DL (0.60-1.10); GLUCOSE 137 MG/DL (70-104); MAGNESIUM 1.8 MG/DL (1.5-2.4); PHOSPHORUS 3.5 MG/DL (2.3-4.5); POTASSIUM 3.7 MMOL/L (3.5-5.1); SODIUM 137 MMOL/L (135-145); TOTAL CARBON DIOXIDE 25.5 MMOL/L (24-32); TOTAL PROTEIN 6.1 G/DL (6.4-8.2); TRIGLYCERIDES 66 MG/DL (20-135); eGFR 77 ML/MIN
[2022-12-06] MEDS: ipratropium/albuterol 3ml nebule NEB SCH ×6 (03:12→23:04)
[2022-12-06 03:53] LABS: ABG BASE EXCESS 1.4 mmol/L (-2.0-2.0); ABG HCO3 23.4 mmol/L (22.0-26.0); ABG OXYGEN SATURATION 93.7 % (94-97); ABG PCO2 (T) 28.8 mmHg (35.0-48.0); ALLEN'S TEST Modified; FCOHb 0.3 % (0.0-3.9); FMetHb 0.4 % (0.0-1.5); PATIENT TEMPERATURE 37.1; PEEP 5 cm H2O; RESPIRATORY RATE 14 b/min; TIDAL VOLUME 500 mL
[2022-12-06] MEDS: dexmedetomidine inj. 400 MCG in normal saline 100ml IV soln 96 ML IV SCH (05:39)
--- NOTE | 2022-12-06 06:24 | NUR ---
Problems reprioritized. Patient report given, questions answered & plan of care reviewed with Alanis LAZAR.
[2022-12-06] MEDS: sodium bicarbonate 1meq/ml inj 150 ML in dextrose 5%-water 850 ML IV SCH ×2 (08:27→17:26)
[2022-12-06] MEDS: pantoprazole 40MG/NS 100ML BAG 100 ML IV SCH (09:09)
[2022-12-06] MEDS: MULTIVIT-MIN/FERROUS GLUCONATE 9 MG/15 ML LIQUID NG SCH (09:09)
[2022-12-06] MEDS: cefepime 1GM/NS ADD-VANTAGE 100 ML IV SCH ×2 (09:09→16:24)
[2022-12-06] MEDS: thiamine 100mg/ml 2ml inj. IV SCH ×2 (09:10→21:39)
[2022-12-06] MEDS: heparin, porcine 5000 units/ml vial SQ SCH ×2 (09:11→16:24)
[2022-12-06] MEDS: folic acid 1mg/0.2ml inj IV SCH (09:17)
[2022-12-06] MEDS: levoFLOXACIN-Levaquin 750MG/D5 150 ML IV SCH (10:33)
--- NOTE | 2022-12-06 11:00 | NUR ---
Rounds note: Patient Precedex to be turned off. Send sputum sample down.
--- NOTE | 2022-12-06 17:00 | NUR ---
Dr. Montalvo rounded again and was asked about starting some sedation for this patient due to the patient feeling uncomfortable, increased RR, increased HR, increased BP, patient nodding head when asked if he is painful. Patient to be started on propofol and fentanyl.
[2022-12-06] MEDS: propofol 1000mg/100ml bottle 100 ML IV SCH (17:26)
[2022-12-06] MEDS: FENTANYL-0.9 % NACL/PF 100 ML IV PRN (17:26)
--- NOTE | 2022-12-06 18:20 | NUR ---
Patient in room CICU 2008. I have received report from Alanis LAZAR and had the opportunity to ask questions and assume patient care.
[2022-12-06] MEDS: insulin glargine (Lantus) pen - multi-dose SQ SCH (21:00)
[2022-12-07] VITALS (29 sets, daily range): BP systolic 102–148; BP diastolic 50–89
[2022-12-07] MEDS: cefepime 1GM/NS ADD-VANTAGE 100 ML IV SCH ×3 (00:12→16:17)
[2022-12-07] MEDS: heparin, porcine 5000 units/ml vial SQ SCH ×3 (00:12→16:18)
[2022-12-07] MEDS: metoprolol tartrate 50mg tablet NG SCH ×4 (02:01→20:03)
[2022-12-07] MEDS: ipratropium/albuterol 3ml nebule NEB SCH ×2 (03:13→07:36)
[2022-12-07 03:26] LABS: ABG BASE EXCESS 6.7 mmol/L (-2.0-2.0); ABG HCO3 30.9 mmol/L (22.0-26.0); ABG OXYGEN SATURATION 94.6 % (94-97); ABG PCO2 (T) 43.7 mmHg (35.0-48.0); ABG PO2 (T) 75.8 mmHg (75.0-100.0); ALLEN'S TEST POSITIVE; FCOHb 0.3 % (0.0-3.9); FMetHb 0.2 % (0.0-1.5); FO2Hb 94.1 % (94-97); PATIENT TEMPERATURE 37.2; PEEP 5 cm H2O; RESPIRATORY RATE 14 b/min; TIDAL VOLUME 450 mL; TOTAL HEMOGLOBIN 9.5 G/dl (14.0-17.9)
[2022-12-07 03:34] LABS: BASOPHILS # (AUTO) 0.2 X10'3 (0-0.2); BASOPHILS % (AUTO) 1.1 % (0-1); EOSINOPHILS # (AUTO) 0.2 X10'3 (0-0.9); EOSINOPHILS % (AUTO) 0.9 % (0-6); HEMATOCRIT 25.8 % (42.0-52.0); HEMOGLOBIN 8.4 g/dl (14.0-17.9); LYMPHOCYTES # (AUTO) 3.3 X10'3 (1.1-4.8); LYMPHOCYTES % (AUTO) 15.8 % (21-51); MEAN CORPUSCULAR HEMOGLOBIN 33.1 PG (27.0-31.0); MEAN CORPUSCULAR HGB CONC 32.7 g/dL (33.0-36.5); MEAN CORPUSCULAR VOLUME 101.1 FL (78-98); MEAN PLATELET VOLUME 8.8 FL (7.4-10.4); MONOCYTES # (AUTO) 3.3 X10'3 (0-0.9); MONOCYTES % (AUTO) 16.1 % (2-12); NEUTROPHILS # (AUTO) 13.7 X10'3 (1.8-7.7); NEUTROPHILS % (AUTO) 66.1 % (42-75); PLATELET COUNT 442 X10'3 (140-440); RED BLOOD COUNT 2.55 X10'6 (4.70-6.10); RED CELL DISTRIBUTION WIDTH 16.1 % (11.5-14.5); WHITE BLOOD COUNT 20.7 X10'3 (4.5-11.0)
[2022-12-07] MEDS: sodium bicarbonate 1meq/ml inj 150 ML in dextrose 5%-water 850 ML IV SCH (03:38)
[2022-12-07 03:47] LABS: APTT 25 SECONDS (22-32)
[2022-12-07 03:49] LABS: ALANINE AMINOTRANSFERASE 181 U/L (12-78); ALBUMIN 2.1 G/DL (3.4-5.0); ALBUMIN/GLOBULIN RATIO 0.6 (1.1-1.5); ALKALINE PHOSPHATASE 121 IU/L (46-116); ANION GAP 7 (8-16); ASPARTATE AMINO TRANSFERASE 79 U/L (10-37); BILIRUBIN,TOTAL 0.3 MG/DL (0.1-1.0); BLOOD UREA NITROGEN 19 MG/DL (7-18); BUN/CREATININE RATIO 20.9 (5.4-32.0); CALCIUM 8.4 MG/DL (8.5-10.1); CHLORIDE 100 MMOL/L (99-107); CREATININE 0.91 MG/DL (0.60-1.10); GLUCOSE 125 MG/DL (70-104); MAGNESIUM 1.7 MG/DL (1.5-2.4); PHOSPHORUS 3.7 MG/DL (2.3-4.5); POTASSIUM 3.2 MMOL/L (3.5-5.1); SODIUM 138 MMOL/L (135-145); TOTAL CARBON DIOXIDE 31.1 MMOL/L (24-32); TOTAL PROTEIN 5.8 G/DL (6.4-8.2); TRIGLYCERIDES 79 MG/DL (20-135); eGFR 83 ML/MIN
[2022-12-07 04:40] LABS: TOTAL CELLS COUNTED 100
[2022-12-07 04:41] LABS: PLATELET ESTIMATE INCREASED
[2022-12-07 04:42] LABS: ANISOCYTOSIS 1+; TARGET CELLS 1+
[2022-12-07 04:43] LABS: LARGE PLATELETS FEW; POLYCHROMASIA FEW
[2022-12-07 04:44] LABS: SMUDGE CELLS FEW
[2022-12-07] MEDS: FENTANYL-0.9 % NACL/PF 100 ML IV PRN (05:45)
[2022-12-07] MEDS: propofol 1000mg/100ml bottle 100 ML IV SCH (05:46)
--- NOTE | 2022-12-07 06:24 | NUR ---
Problems reprioritized. Patient report given, questions answered & plan of care reviewed with Alanis LAZAR.
[2022-12-07] MEDS: pantoprazole 40MG/NS 100ML BAG 100 ML IV SCH (08:37)
[2022-12-07] MEDS: folic acid 1mg/0.2ml inj IV SCH (09:21)
[2022-12-07] MEDS: MULTIVIT-MIN/FERROUS GLUCONATE 9 MG/15 ML LIQUID NG SCH (09:23)
[2022-12-07] MEDS: thiamine 100mg/ml 2ml inj. IV SCH ×2 (09:23→20:02)
[2022-12-07] MEDS: levoFLOXACIN-Levaquin 750MG/D5 150 ML IV SCH (09:23)
[2022-12-07] MEDS: POTASSIUM BICARB 20meq eff tab 20 MEQ TABLET.EFF NG PRN ×2 (09:36→14:36)
[2022-12-07] MEDS ORDERED: ipratropium/albuterol 3ml nebule NEB PRN (10:35)
--- NOTE | 2022-12-07 10:50 | NUR ---
Rounds note: Extubate patient, d/c bicarb gtt, d/c propofol and fentanyl.
--- NOTE | 2022-12-07 11:11 | NUR ---
Patient extubated placed on 4L NC, restraints d/c'd
[2022-12-07] MEDS: insulin glargine (Lantus) pen - multi-dose SQ SCH (20:34)
[2022-12-08] VITALS (29 sets, daily range): BP systolic 95–160; BP diastolic 53–87
[2022-12-08] MEDS: cefepime 1GM/NS ADD-VANTAGE 100 ML IV SCH ×3 (00:01→16:00)
[2022-12-08] MEDS: heparin, porcine 5000 units/ml vial SQ SCH ×3 (00:02→16:00)
[2022-12-08] MEDS: metoprolol tartrate 50mg tablet NG SCH ×4 (01:30→20:06)
[2022-12-08 02:24] LABS: BASOPHILS # (AUTO) 0.1 X10'3 (0-0.2); BASOPHILS % (AUTO) 0.5 % (0-1); EOSINOPHILS # (AUTO) 0.3 X10'3 (0-0.9); EOSINOPHILS % (AUTO) 1.4 % (0-6); HEMATOCRIT 26.8 % (42.0-52.0); HEMOGLOBIN 9.2 g/dl (14.0-17.9); LYMPHOCYTES # (AUTO) 3.3 X10'3 (1.1-4.8); LYMPHOCYTES % (AUTO) 16.1 % (21-51); MEAN CORPUSCULAR HEMOGLOBIN 34.6 PG (27.0-31.0); MEAN CORPUSCULAR HGB CONC 34.5 g/dL (33.0-36.5); MEAN CORPUSCULAR VOLUME 100.4 FL (78-98); MEAN PLATELET VOLUME 8.5 FL (7.4-10.4); MONOCYTES # (AUTO) 2.5 X10'3 (0-0.9); MONOCYTES % (AUTO) 12.5 % (2-12); NEUTROPHILS # (AUTO) 14.1 X10'3 (1.8-7.7); NEUTROPHILS % (AUTO) 69.5 % (42-75); PLATELET COUNT 512 X10'3 (140-440); RED BLOOD COUNT 2.67 X10'6 (4.70-6.10); RED CELL DISTRIBUTION WIDTH 15.7 % (11.5-14.5); WHITE BLOOD COUNT 20.3 X10'3 (4.5-11.0)
[2022-12-08 02:34] LABS: APTT 26 SECONDS (22-32)
[2022-12-08 02:37] LABS: ALANINE AMINOTRANSFERASE 146 U/L (12-78); ALBUMIN 2.4 G/DL (3.4-5.0); ALBUMIN/GLOBULIN RATIO 0.6 (1.1-1.5); ALKALINE PHOSPHATASE 122 IU/L (46-116); ANION GAP 9 (8-16); ASPARTATE AMINO TRANSFERASE 53 U/L (10-37); BILIRUBIN,TOTAL 0.4 MG/DL (0.1-1.0); BLOOD UREA NITROGEN 18 MG/DL (7-18); BUN/CREATININE RATIO 20.2 (5.4-32.0); CALCIUM 9.2 MG/DL (8.5-10.1); CHLORIDE 100 MMOL/L (99-107); CREATININE 0.89 MG/DL (0.60-1.10); GLUCOSE 123 MG/DL (70-104); MAGNESIUM 1.6 MG/DL (1.5-2.4); PHOSPHORUS 3.3 MG/DL (2.3-4.5); POTASSIUM 3.6 MMOL/L (3.5-5.1); SODIUM 136 MMOL/L (135-145); TOTAL CARBON DIOXIDE 27.2 MMOL/L (24-32); TOTAL PROTEIN 6.6 G/DL (6.4-8.2); eGFR 86 ML/MIN
[2022-12-08] MEDS: pantoprazole 40MG/NS 100ML BAG 100 ML IV SCH (07:35)
[2022-12-08] MEDS: MULTIVIT-MIN/FERROUS GLUCONATE 9 MG/15 ML LIQUID NG SCH (07:36)
[2022-12-08] MEDS: thiamine 100mg/ml 2ml inj. IV SCH ×2 (07:36→20:05)
[2022-12-08] MEDS: levoFLOXACIN-Levaquin 750MG/D5 150 ML IV SCH (07:36)
[2022-12-08] MEDS: folic acid 1mg/0.2ml inj IV SCH (07:37)
--- NOTE | 2022-12-08 08:59 | NUR ---
Dr. Montalvo rounding; aware of RR in the upper 30s, low 40s; continue deep breath/cough to clear lungs.
[2022-12-08] MEDS ORDERED: fentaNYL 2,500 MCG in Normal Saline 250ml IV soln bag IV SCH (11:00)
[2022-12-08] MEDS ORDERED: rocuronium 10mg/ml inj IV ONE (11:20)
[2022-12-08] MEDS ORDERED: etomidate 2mg/ml inj. IV ONE (11:20)
[2022-12-08] MEDS: propofol 1000mg/100ml bottle 100 ML IV SCH ×2 (11:40→19:34)
[2022-12-08] MEDS: FENTANYL 1000MCG/NS 100 ML BAG /PF IV PRN (11:41)
[2022-12-08 12:25] LABS: ABG BASE EXCESS -0.1 mmol/L (-2.0-2.0); ABG OXYGEN SATURATION 93.1 % (94-97); ABG PCO2 (T) 48.4 mmHg (35.0-48.0); ABG PO2 (T) 78.1 mmHg (75.0-100.0); ALLEN'S TEST POSITIVE; FCOHb 0.3 % (0.0-3.9); FMetHb 0.5 % (0.0-1.5); FO2Hb 92.4 % (94-97); PATIENT TEMPERATURE 36.7; PEEP 5 cm H2O; RESPIRATORY RATE 14 b/min; TIDAL VOLUME 450 mL; TOTAL HEMOGLOBIN 10.7 G/dl (14.0-17.9)
--- NOTE | 2022-12-08 13:05 | NUR ---
Reassessment: Pt extubated 12/07 however reintubated today with plans to get a trach and PEG per MD. NGT remains in place and pt tolerating TF with GRV WNL. Per EMR pt started on Propofol at 2.358 mL/hr providing 62 kcal/day. Will monitor Propofol rate and need to adjust TF recs. LBM 12/07 documented with 1350 mL stool output from rectal tube, currently not receiving any bowel care. Will continue to follow. Recommendations: 1) Continuous Vital AF via NGT with 80 mL/hr goal rate to provide 1920 mL total volume/day, 2304 kcal, 144 g protein, and 1557 mL water 2) Monitor Propofol rate and need to adjust TF recs 3) Additional water flush per brim stretching machine operator; monitor serum Na 4) Prealbumin q Monday/; Daily scaled weights 5) Monitor need for antidiarrheal 6) Routine Thiamine, Folic acid, and MVM given EtOH hx with elevated MCV Addendum: 12/08/22 at [address] Amended: Links added.
--- NOTE | 2022-12-08 18:19 | NUR ---
Problems reprioritized. Patient report given, questions answered & plan of care reviewed with Mac RN.
[2022-12-08] MEDS: insulin glargine (Lantus) pen - multi-dose SQ SCH (20:06)
--- NOTE | 2022-12-08 21:45 | NUR ---
Communication -Per Dr. Lee, pt will not be going for trach and PEG tomorrow because there is no room on the OR schedule. Pt will possibly go to OR on Monday
[2022-12-09] VITALS (35 sets, daily range): BP systolic 94–134; BP diastolic 54–77
[2022-12-09] MEDS: cefepime 1GM/NS ADD-VANTAGE 100 ML IV SCH ×4 (00:36→23:15)
[2022-12-09] MEDS: heparin, porcine 5000 units/ml vial SQ SCH ×4 (00:37→23:19)
[2022-12-09] MEDS: metoprolol tartrate 50mg tablet NG SCH ×4 (02:23→19:52)
[2022-12-09 03:06] LABS: BASOPHILS # (AUTO) 0.1 X10'3 (0-0.2); BASOPHILS % (AUTO) 0.3 % (0-1); EOSINOPHILS # (AUTO) 0.3 X10'3 (0-0.9); EOSINOPHILS % (AUTO) 1.6 % (0-6); HEMATOCRIT 28.3 % (42.0-52.0); HEMOGLOBIN 9.3 g/dl (14.0-17.9); LYMPHOCYTES # (AUTO) 4.9 X10'3 (1.1-4.8); LYMPHOCYTES % (AUTO) 24.3 % (21-51); MEAN CORPUSCULAR HEMOGLOBIN 33.1 PG (27.0-31.0); MEAN CORPUSCULAR HGB CONC 32.8 g/dL (33.0-36.5); MEAN CORPUSCULAR VOLUME 100.8 FL (78-98); MEAN PLATELET VOLUME 9.2 FL (7.4-10.4); MONOCYTES # (AUTO) 1.7 X10'3 (0-0.9); MONOCYTES % (AUTO) 8.5 % (2-12); NEUTROPHILS # (AUTO) 13.2 X10'3 (1.8-7.7); NEUTROPHILS % (AUTO) 65.3 % (42-75); PLATELET COUNT 528 X10'3 (140-440); RED BLOOD COUNT 2.81 X10'6 (4.70-6.10); RED CELL DISTRIBUTION WIDTH 15.4 % (11.5-14.5); WHITE BLOOD COUNT 20.3 X10'3 (4.5-11.0)
[2022-12-09 03:14] LABS: APTT 28 SECONDS (22-32)
[2022-12-09 03:18] LABS: ABG BASE EXCESS 1.7 mmol/L (-2.0-2.0); ABG HCO3 25.6 mmol/L (22.0-26.0); ABG OXYGEN SATURATION 92.8 % (94-97); ABG PCO2 (T) 38.4 mmHg (35.0-48.0); ALLEN'S TEST POSITIVE; FCOHb 0.3 % (0.0-3.9); FMetHb 0.3 % (0.0-1.5); FO2Hb 92.2 % (94-97); PATIENT TEMPERATURE 37.5; PEEP 5 cm H2O; RESPIRATORY RATE 16 b/min; TIDAL VOLUME 450 mL; TOTAL HEMOGLOBIN 10.5 G/dl (14.0-17.9)
[2022-12-09 03:28] LABS: ALANINE AMINOTRANSFERASE 108 U/L (12-78); ALBUMIN 2.1 G/DL (3.4-5.0); ALBUMIN/GLOBULIN RATIO 0.5 (1.1-1.5); ALKALINE PHOSPHATASE 123 IU/L (46-116); ANION GAP 9 (8-16); ASPARTATE AMINO TRANSFERASE 31 U/L (10-37); BILIRUBIN,TOTAL 0.3 MG/DL (0.1-1.0); BLOOD UREA NITROGEN 22 MG/DL (7-18); BUN/CREATININE RATIO 22.9 (5.4-32.0); CALCIUM 8.9 MG/DL (8.5-10.1); CHLORIDE 99 MMOL/L (99-107); CREATININE 0.96 MG/DL (0.60-1.10); GLUCOSE 116 MG/DL (70-104); MAGNESIUM 1.5 MG/DL (1.5-2.4); PHOSPHORUS 4.3 MG/DL (2.3-4.5); POTASSIUM 3.7 MMOL/L (3.5-5.1); SODIUM 135 MMOL/L (135-145); TOTAL CARBON DIOXIDE 27.5 MMOL/L (24-32); TOTAL PROTEIN 6.5 G/DL (6.4-8.2); TRIGLYCERIDES 117 MG/DL (20-135); eGFR 78 ML/MIN
[2022-12-09] MEDS: propofol 1000mg/100ml bottle 100 ML IV SCH ×3 (05:31→21:45)
[2022-12-09] MEDS: pantoprazole 40MG/NS 100ML BAG 100 ML IV SCH (07:44)
[2022-12-09] MEDS: thiamine 100mg/ml 2ml inj. IV SCH ×2 (07:47→19:51)
[2022-12-09] MEDS: MULTIVIT-MIN/FERROUS GLUCONATE 9 MG/15 ML LIQUID NG SCH (07:47)
[2022-12-09] MEDS: folic acid 1mg/0.2ml inj IV SCH (07:47)
[2022-12-09] MEDS: levoFLOXACIN-Levaquin 750MG/D5 150 ML IV SCH (07:48)
[2022-12-09] MEDS: FENTANYL 1000MCG/NS 100 ML BAG /PF IV PRN (07:49)
[2022-12-09] MEDS: mineral oil/petrolatum ophthal oint EACHEYE SCH ×2 (13:26→19:52)
--- NOTE | 2022-12-09 16:30 | NUR ---
Dr. Rosa cope; plans for trach/PEG in the morning 12/10/22; NPO after midnight and hold SQ Heparin starting at midnight.
--- NOTE | 2022-12-09 18:11 | NUR ---
Problems reprioritized. Patient report given, questions answered & plan of care reviewed with Mac RN.
--- NOTE | 2022-12-09 18:45 | NUR ---
Communication -Dr. Costello at bedside. Will take pt to OR for trach and PEG on Monday at 0900.
[2022-12-09] MEDS: insulin glargine (Lantus) pen - multi-dose SQ SCH (19:52)
[2022-12-09] MEDS: nystatin 15 GM powder TP SCH (21:45)
[2022-12-10] VITALS (34 sets, daily range): BP systolic 87–143; BP diastolic 50–84
[2022-12-10] MEDS ORDERED: tPA-cathflo 2 MG/2 ml IV flush IVF ONE (00:35)
--- NOTE | 2022-12-10 01:00 | NUR ---
Communication -Called Dr. Silva regarding one port on PICC line clogged. Received order for Cathflow.
[2022-12-10] MEDS: mineral oil/petrolatum ophthal oint EACHEYE SCH ×4 (02:00→20:23)
[2022-12-10] MEDS: metoprolol tartrate 50mg tablet NG SCH ×4 (02:00→20:22)
[2022-12-10 02:14] LABS: ABG BASE EXCESS -0.3 mmol/L (-2.0-2.0); ABG HCO3 23.6 mmol/L (22.0-26.0); ABG PCO2 (T) 35.6 mmHg (35.0-48.0); ABG PO2 (T) 66.1 mmHg (75.0-100.0); ALLEN'S TEST POSITIVE; FCOHb 0.3 % (0.0-3.9); FMetHb 0.3 % (0.0-1.5); FO2Hb 91.4 % (94-97); PEEP 5 cm H2O; RESPIRATORY RATE 16 b/min; TIDAL VOLUME 450 mL; TOTAL HEMOGLOBIN 10.4 G/dl (14.0-17.9)
--- NOTE | 2022-12-10 03:00 | NUR ---
All PICC line ports flushing and drawing.
[2022-12-10 03:23] LABS: BASOPHILS % (AUTO) 0.2 % (0-1); EOSINOPHILS # (AUTO) 0.4 X10'3 (0-0.9); HEMATOCRIT 27.4 % (42.0-52.0); HEMOGLOBIN 8.8 g/dl (14.0-17.9); LYMPHOCYTES # (AUTO) 3.5 X10'3 (1.1-4.8); LYMPHOCYTES % (AUTO) 19.2 % (21-51); MEAN CORPUSCULAR HEMOGLOBIN 32.8 PG (27.0-31.0); MEAN CORPUSCULAR HGB CONC 32.2 g/dL (33.0-36.5); MEAN CORPUSCULAR VOLUME 101.7 FL (78-98); MEAN PLATELET VOLUME 9.4 FL (7.4-10.4); MONOCYTES # (AUTO) 1.4 X10'3 (0-0.9); MONOCYTES % (AUTO) 7.8 % (2-12); NEUTROPHILS # (AUTO) 12.8 X10'3 (1.8-7.7); NEUTROPHILS % (AUTO) 70.8 % (42-75); PLATELET COUNT 505 X10'3 (140-440); RED CELL DISTRIBUTION WIDTH 15.6 % (11.5-14.5); WHITE BLOOD COUNT 18.1 X10'3 (4.5-11.0)
[2022-12-10 03:57] LABS: APTT 26 SECONDS (22-32)
[2022-12-10 03:58] LABS: ALANINE AMINOTRANSFERASE 89 U/L (12-78); ALBUMIN 2.2 G/DL (3.4-5.0); ALBUMIN/GLOBULIN RATIO 0.5 (1.1-1.5); ALKALINE PHOSPHATASE 125 IU/L (46-116); ANION GAP 10 (8-16); ASPARTATE AMINO TRANSFERASE 39 U/L (10-37); BILIRUBIN,TOTAL 0.3 MG/DL (0.1-1.0); BLOOD UREA NITROGEN 22 MG/DL (7-18); BUN/CREATININE RATIO 23.4 (5.4-32.0); CHLORIDE 100 MMOL/L (99-107); CREATININE 0.94 MG/DL (0.60-1.10); GLUCOSE 111 MG/DL (70-104); MAGNESIUM 1.6 MG/DL (1.5-2.4); PHOSPHORUS 4.6 MG/DL (2.3-4.5); POTASSIUM 3.9 MMOL/L (3.5-5.1); SODIUM 135 MMOL/L (135-145); TOTAL CARBON DIOXIDE 25.4 MMOL/L (24-32); TOTAL PROTEIN 6.4 G/DL (6.4-8.2); TRIGLYCERIDES 202 MG/DL (20-135); eGFR 80 ML/MIN
[2022-12-10] MEDS: propofol 1000mg/100ml bottle 100 ML IV SCH ×2 (05:55→13:46)
[2022-12-10] MEDS: folic acid 1mg/0.2ml inj IV SCH (08:33)
[2022-12-10] MEDS: MULTIVIT-MIN/FERROUS GLUCONATE 9 MG/15 ML LIQUID NG SCH (08:33)
[2022-12-10] MEDS: pantoprazole 40MG/NS 100ML BAG 100 ML IV SCH (08:37)
[2022-12-10] MEDS: levoFLOXACIN-Levaquin 750MG/D5 150 ML IV SCH (08:37)
[2022-12-10] MEDS: cefepime 1GM/NS ADD-VANTAGE 100 ML IV SCH ×3 (08:37→23:57)
[2022-12-10] MEDS: heparin, porcine 5000 units/ml vial SQ SCH ×3 (08:38→23:57)
[2022-12-10] MEDS: thiamine 100mg/ml 2ml inj. IV SCH ×2 (08:38→20:23)
[2022-12-10] MEDS: nystatin 15 GM powder TP SCH ×3 (08:39→21:00)
[2022-12-10] MEDS: FENTANYL 1000MCG/NS 100 ML BAG /PF IV PRN (11:48)
--- NOTE | 2022-12-10 15:20 | NUR ---
Dr. Costello roundbeth; plans for tracheostomy and PEG placement. NPO after midnight. Do not hold 0000 dose of Heparin.
--- NOTE | 2022-12-10 18:25 | NUR ---
Problems reprioritized. Patient report given, questions answered & plan of care reviewed with Mac RN.
[2022-12-10] MEDS: insulin glargine (Lantus) pen - multi-dose SQ SCH (20:44)
[2022-12-11] VITALS (38 sets, daily range): BP systolic 100–161; BP diastolic 55–104
[2022-12-11] MEDS: mineral oil/petrolatum ophthal oint EACHEYE SCH ×4 (02:15→20:28)
[2022-12-11] MEDS: metoprolol tartrate 50mg tablet NG SCH ×4 (02:15→20:00)
[2022-12-11 02:45] LABS: BASOPHILS # (AUTO) 0.3 X10'3 (0-0.2); BASOPHILS % (AUTO) 1.3 % (0-1); EOSINOPHILS # (AUTO) 0.6 X10'3 (0-0.9); EOSINOPHILS % (AUTO) 2.7 % (0-6); HEMATOCRIT 27.7 % (42.0-52.0); HEMOGLOBIN 9.1 g/dl (14.0-17.9); LYMPHOCYTES # (AUTO) 3.8 X10'3 (1.1-4.8); LYMPHOCYTES % (AUTO) 18.2 % (21-51); MEAN CORPUSCULAR HEMOGLOBIN 33.1 PG (27.0-31.0); MEAN CORPUSCULAR HGB CONC 32.7 g/dL (33.0-36.5); MEAN CORPUSCULAR VOLUME 101.4 FL (78-98); MEAN PLATELET VOLUME 8.6 FL (7.4-10.4); MONOCYTES # (AUTO) 2.2 X10'3 (0-0.9); MONOCYTES % (AUTO) 10.6 % (2-12); NEUTROPHILS # (AUTO) 13.9 X10'3 (1.8-7.7); NEUTROPHILS % (AUTO) 67.2 % (42-75); PLATELET COUNT 505 X10'3 (140-440); RED BLOOD COUNT 2.73 X10'6 (4.70-6.10); RED CELL DISTRIBUTION WIDTH 15.6 % (11.5-14.5); WHITE BLOOD COUNT 20.7 X10'3 (4.5-11.0)
[2022-12-11 02:54] LABS: ALANINE AMINOTRANSFERASE 77 U/L (12-78); ALBUMIN 2.2 G/DL (3.4-5.0); ALBUMIN/GLOBULIN RATIO 0.5 (1.1-1.5); ALKALINE PHOSPHATASE 131 IU/L (46-116); ANION GAP 6 (8-16); APTT 29 SECONDS (22-32); ASPARTATE AMINO TRANSFERASE 34 U/L (10-37); BILIRUBIN,TOTAL 0.3 MG/DL (0.1-1.0); BLOOD UREA NITROGEN 24 MG/DL (7-18); BUN/CREATININE RATIO 22.6 (5.4-32.0); CALCIUM 8.9 MG/DL (8.5-10.1); CHLORIDE 100 MMOL/L (99-107); CREATININE 1.06 MG/DL (0.60-1.10); GLUCOSE 108 MG/DL (70-104); MAGNESIUM 1.7 MG/DL (1.5-2.4); PHOSPHORUS 4.7 MG/DL (2.3-4.5); POTASSIUM 4.3 MMOL/L (3.5-5.1); SODIUM 134 MMOL/L (135-145); TOTAL PROTEIN 6.8 G/DL (6.4-8.2); eGFR 70 ML/MIN
[2022-12-11 03:07] LABS: ABG BASE EXCESS 1.3 mmol/L (-2.0-2.0); ABG HCO3 24.9 mmol/L (22.0-26.0); ABG OXYGEN SATURATION 91.5 % (94-97); ABG PCO2 (T) 35.8 mmHg (35.0-48.0); ABG PO2 (T) 62.8 mmHg (75.0-100.0); ALLEN'S TEST POSITIVE; FCOHb 0.3 % (0.0-3.9); FMetHb 0.3 % (0.0-1.5); PEEP 5 cm H2O; RESPIRATORY RATE 16 b/min; TIDAL VOLUME 450 mL; TOTAL HEMOGLOBIN 10.4 G/dl (14.0-17.9)
[2022-12-11] MEDS: propofol 1000mg/100ml bottle 100 ML IV SCH ×3 (04:07→20:27)
--- NOTE | 2022-12-11 06:30 | NUR ---
Patient in room CICU 2007. I have received report from NAGI Min and had the opportunity to ask questions and assume patient care.
[2022-12-11] MEDS: FENTANYL 1000MCG/NS 100 ML BAG /PF IV PRN ×2 (06:52→20:27)
[2022-12-11] MEDS: pantoprazole 40MG/NS 100ML BAG 100 ML IV SCH (07:22)
[2022-12-11] MEDS: folic acid 1mg/0.2ml inj IV SCH (07:24)
[2022-12-11] MEDS: thiamine 100mg/ml 2ml inj. IV SCH ×2 (07:24→21:00)
[2022-12-11] MEDS: cefepime 1GM/NS ADD-VANTAGE 100 ML IV SCH ×2 (07:52→15:54)
[2022-12-11] MEDS: nystatin 15 GM powder TP SCH ×3 (08:00→21:57)
[2022-12-11] MEDS: heparin, porcine 5000 units/ml vial SQ SCH ×2 (08:00→15:54)
[2022-12-11] MEDS: MULTIVIT-MIN/FERROUS GLUCONATE 9 MG/15 ML LIQUID NG SCH (08:00)
[2022-12-11] MEDS: levoFLOXACIN-Levaquin 750MG/D5 150 ML IV SCH (08:28)
--- NOTE | 2022-12-11 09:50 | NUR ---
Pt out to OR
[2022-12-11] MEDS ORDERED: sevoflurane 250ml liquid IH ONE (10:03)
[2022-12-11] MEDS ORDERED: BUPIVAcaine 0.5% inj/PF 30 ML ONE (10:11)
[2022-12-11] MEDS ORDERED: LIDOcaine 1% 30ml preserv. free vial ONE (10:11)
[2022-12-11] MEDS ORDERED: ceFAZolin 1000mg inj ONE ×2 (10:21)
[2022-12-11] MEDS ORDERED: rocuronium 10mg/ml inj IV ONE (10:22)
[2022-12-11] MEDS ORDERED: BUPIVAcaine 0.5% inj/PF 30 ml vial IJ ONE (10:39)
--- NOTE | 2022-12-11 11:20 | NUR ---
Pt returned from OR. Sebastian #[phone] Pt RASS -2, respirations even and unlabored. Report received from Dr De Santiago.
--- NOTE | 2022-12-11 14:21 | NUR ---
TF Consult: Pt s/p tracheostomy and PEG placement today w/ TF to start tomorrow per surgeon. No change to current TF recs/orders in EMR; may initiate at 40ml/hr and if tolerated return to prior 80ml/hr goal since pt tolerating previously via NG. Recommendations: 1) Continuous Vital AF via PEG at 80mL/hr goal rate to provide 1920 mL total volume/day, 2304 kcal, 144 g protein, and 1557 mL water. On 12/12 initiate at 40ml/hr and if tolerated Q8H return to prior 80ml/hr goal rate. 2) Monitor Propofol rate and need to adjust TF recs 3) Additional water flush per road machine operator; monitor serum Na 4) Prealbumin q Monday/; Daily scaled weights 5) Monitor need for antidiarrheal 6) Routine Thiamine, Folic acid, and MVM given EtOH hx with elevated MCV Addendum: 12/11/22 at [address] Amended: Links added.
--- NOTE | 2022-12-11 18:11 | NUR ---
Problems reprioritized. Patient report given, questions answered & plan of care reviewed with NAGI Pappas.
--- NOTE | 2022-12-11 18:49 | NUR ---
I have received report and assumed care of pt. Pt resting in bed rise and fall of chest cavity equile and symmetrical assessment complete.
[2022-12-11] MEDS: insulin glargine (Lantus) pen - multi-dose SQ SCH (21:00)
[2022-12-12] VITALS (34 sets, daily range): BP systolic 88–147; BP diastolic 48–94
[2022-12-12] MEDS: heparin, porcine 5000 units/ml vial SQ SCH ×3 (00:42→16:56)
[2022-12-12] MEDS: cefepime 1GM/NS ADD-VANTAGE 100 ML IV SCH ×2 (00:43→08:05)
[2022-12-12] MEDS: metoprolol tartrate 50mg tablet NG SCH ×4 (02:00→20:25)
[2022-12-12] MEDS: mineral oil/petrolatum ophthal oint EACHEYE SCH ×4 (02:55→20:00)
[2022-12-12] MEDS: propofol 1000mg/100ml bottle 100 ML IV SCH (03:01)
[2022-12-12 03:28] LABS: BASOPHILS # (AUTO) 0.2 X10'3 (0-0.2); BASOPHILS % (AUTO) 1.1 % (0-1); EOSINOPHILS # (AUTO) 0.5 X10'3 (0-0.9); HEMATOCRIT 26.3 % (42.0-52.0); HEMOGLOBIN 8.9 g/dl (14.0-17.9); LYMPHOCYTES # (AUTO) 3.1 X10'3 (1.1-4.8); LYMPHOCYTES % (AUTO) 19.9 % (21-51); MEAN CORPUSCULAR HEMOGLOBIN 34.2 PG (27.0-31.0); MEAN CORPUSCULAR VOLUME 100.7 FL (78-98); MEAN PLATELET VOLUME 7.9 FL (7.4-10.4); MONOCYTES # (AUTO) 1.6 X10'3 (0-0.9); MONOCYTES % (AUTO) 10.4 % (2-12); NEUTROPHILS # (AUTO) 10.3 X10'3 (1.8-7.7); NEUTROPHILS % (AUTO) 65.6 % (42-75); PLATELET COUNT 502 X10'3 (140-440); RED BLOOD COUNT 2.61 X10'6 (4.70-6.10); RED CELL DISTRIBUTION WIDTH 15.5 % (11.5-14.5); WHITE BLOOD COUNT 15.7 X10'3 (4.5-11.0)
[2022-12-12 03:37] LABS: APTT 26 SECONDS (22-32)
[2022-12-12 03:41] LABS: ABG BASE EXCESS -0.7 mmol/L (-2.0-2.0); ABG HCO3 24.2 mmol/L (22.0-26.0); ABG OXYGEN SATURATION 94.4 % (94-97); ABG PCO2 (T) 41.2 mmHg (35.0-48.0); ABG PO2 (T) 80.5 mmHg (75.0-100.0); ALLEN'S TEST POSITIVE; FCOHb 0.3 % (0.0-3.9); FMetHb 0.4 % (0.0-1.5); FO2Hb 93.7 % (94-97); PATIENT TEMPERATURE 37.2; PEEP 5 cm H2O; RESPIRATORY RATE 16 b/min; TIDAL VOLUME 450 mL; TOTAL HEMOGLOBIN 10.4 G/dl (14.0-17.9)
[2022-12-12 03:43] LABS: ALANINE AMINOTRANSFERASE 56 U/L (12-78); ALBUMIN 2.3 G/DL (3.4-5.0); ALBUMIN/GLOBULIN RATIO 0.5 (1.1-1.5); ALKALINE PHOSPHATASE 96 IU/L (46-116); ANION GAP 6 (8-16); ASPARTATE AMINO TRANSFERASE 29 U/L (10-37); BILIRUBIN,TOTAL 0.3 MG/DL (0.1-1.0); BLOOD UREA NITROGEN 22 MG/DL (7-18); BUN/CREATININE RATIO 21.4 (5.4-32.0); CALCIUM 8.7 MG/DL (8.5-10.1); CHLORIDE 99 MMOL/L (99-107); CREATININE 1.03 MG/DL (0.60-1.10); GLUCOSE 91 MG/DL (70-104); MAGNESIUM 1.9 MG/DL (1.5-2.4); PHOSPHORUS 4.6 MG/DL (2.3-4.5); POTASSIUM 4.3 MMOL/L (3.5-5.1); SODIUM 133 MMOL/L (135-145); TOTAL CARBON DIOXIDE 28.5 MMOL/L (24-32); TOTAL PROTEIN 6.6 G/DL (6.4-8.2); eGFR 72 ML/MIN
[2022-12-12] MEDS: folic acid 1mg/0.2ml inj IV SCH (07:21)
[2022-12-12] MEDS: thiamine 100mg/ml 2ml inj. IV SCH ×2 (07:21→20:26)
[2022-12-12] MEDS: pantoprazole 40MG/NS 100ML BAG 100 ML IV SCH (07:21)
[2022-12-12] MEDS: MULTIVIT-MIN/FERROUS GLUCONATE 9 MG/15 ML LIQUID NG SCH (07:21)
[2022-12-12] MEDS: nystatin 15 GM powder TP SCH ×3 (07:23→21:00)
[2022-12-12] MEDS: levoFLOXACIN-Levaquin 750MG/D5 150 ML IV SCH (09:01)
[2022-12-12] MEDS ORDERED: haloperidol lactate 5mg/ml inj IM PRN (09:15)
[2022-12-12] MEDS ORDERED: haloperidol lactate 5mg/ml inj IM ONE (09:15)
[2022-12-12] MEDS ORDERED: haloperidol lactate 5mg/ml inj IVH ONE (09:40)
[2022-12-12] MEDS ORDERED: haloperidol lactate 5mg/ml inj IVH PRN (09:40)
[2022-12-12] MEDS ORDERED: risperiDONE 2mg tablet PEG ONE (10:50)
--- NOTE | 2022-12-12 11:04 | NUR ---
F/u 12/12: Pt s/p tracheostomy and PEG yesterday TF to restart at 40ml/hr using Vital AF and advance Q8H to prior goal rate 80ml/hr since previously tolerating. Receiving Propofol at 11.79ml/hr providing additional 311 kcals/day; attempt to wean next 24 hours per RN at rounds. LBM 12/11. Serum Na 133mmol/L though pt NPO for procedure since yesterday and receiving no water flushes w/ EN. Will continue to follow. Recommendations: 1) Continuous TF via PEG using Vital AF at 80mL/hr goal; to provide 1920 mL total volume/day, 2304 kcal, 144 g protein, and 1557 mL water. Initiate at 40ml/hr and if tolerated Q8H return to prior 80ml/hr goal rate. 2) Monitor Propofol rate and need to adjust TF recs 3) Additional water flush per nursing services manager; monitor serum Na 4) Prealbumin q Monday/; Daily scaled weights 5) Monitor need for antidiarrheal 6) Routine Thiamine, Folic acid, and MVM given EtOH hx with elevated MCV Addendum: 12/12/22 at [address] Amended: Links added.
[2022-12-12] MEDS ORDERED: risperiDONE 0.5mg tablet PEG ONE (12:25)
--- NOTE | 2022-12-12 18:21 | NUR ---
Problems reprioritized. Patient report given, questions answered & plan of care reviewed with NAGI Mullins.
[2022-12-12] MEDS: insulin glargine (Lantus) pen - multi-dose SQ SCH (21:00)
[2022-12-13] VITALS (33 sets, daily range): BP systolic 93–129; BP diastolic 48–79
[2022-12-13] MEDS: heparin, porcine 5000 units/ml vial SQ SCH ×3 (01:30→16:22)
[2022-12-13] MEDS: mineral oil/petrolatum ophthal oint EACHEYE SCH ×4 (02:00→20:43)
[2022-12-13] MEDS: metoprolol tartrate 50mg tablet NG SCH ×4 (02:00→20:43)
[2022-12-13 02:40] LABS: ABG BASE EXCESS -0.6 mmol/L (-2.0-2.0); ABG HCO3 22.9 mmol/L (22.0-26.0); ABG OXYGEN SATURATION 94.7 % (94-97); ABG PCO2 (T) 33.3 mmHg (35.0-48.0); ABG PO2 (T) 76.4 mmHg (75.0-100.0); ALLEN'S TEST POSITIVE; FCOHb 0.3 % (0.0-3.9); FMetHb 0.3 % (0.0-1.5); FO2Hb 94.1 % (94-97); PEEP 5 cm H2O; TOTAL HEMOGLOBIN 10.3 G/dl (14.0-17.9)
[2022-12-13] MEDS ORDERED: ondansetron/PF 4mg/2ml inj IV PRN (07:10)
[2022-12-13 07:54] LABS: BASOPHILS # (AUTO) 0.1 X10'3 (0-0.2); BASOPHILS % (AUTO) 0.7 % (0-1); EOSINOPHILS # (AUTO) 0.4 X10'3 (0-0.9); EOSINOPHILS % (AUTO) 2.1 % (0-6); HEMATOCRIT 28.5 % (42.0-52.0); HEMOGLOBIN 9.5 g/dl (14.0-17.9); LYMPHOCYTES # (AUTO) 4.1 X10'3 (1.1-4.8); LYMPHOCYTES % (AUTO) 24.6 % (21-51); MEAN CORPUSCULAR HEMOGLOBIN 33.1 PG (27.0-31.0); MEAN CORPUSCULAR HGB CONC 33.3 g/dL (33.0-36.5); MEAN CORPUSCULAR VOLUME 99.6 FL (78-98); MEAN PLATELET VOLUME 8.1 FL (7.4-10.4); MONOCYTES # (AUTO) 2.1 X10'3 (0-0.9); MONOCYTES % (AUTO) 12.6 % (2-12); PLATELET COUNT 561 X10'3 (140-440); RED BLOOD COUNT 2.86 X10'6 (4.70-6.10); RED CELL DISTRIBUTION WIDTH 15.2 % (11.5-14.5); WHITE BLOOD COUNT 16.7 X10'3 (4.5-11.0)
[2022-12-13] MEDS: MULTIVIT-MIN/FERROUS GLUCONATE 9 MG/15 ML LIQUID NG SCH (07:54)
[2022-12-13] MEDS: folic acid 1mg/0.2ml inj IV SCH (07:54)
[2022-12-13] MEDS: thiamine 100mg/ml 2ml inj. IV SCH ×2 (07:54→20:43)
[2022-12-13] MEDS: pantoprazole 40MG/NS 100ML BAG 100 ML IV SCH (07:54)
[2022-12-13] MEDS: nystatin 15 GM powder TP SCH ×3 (08:00→23:17)
[2022-12-13 08:09] LABS: ALANINE AMINOTRANSFERASE 50 U/L (12-78); ALBUMIN 2.6 G/DL (3.4-5.0); ALBUMIN/GLOBULIN RATIO 0.6 (1.1-1.5); ALKALINE PHOSPHATASE 95 IU/L (46-116); ANION GAP 9 (8-16); ASPARTATE AMINO TRANSFERASE 30 U/L (10-37); BILIRUBIN,TOTAL 0.4 MG/DL (0.1-1.0); BLOOD UREA NITROGEN 19 MG/DL (7-18); BUN/CREATININE RATIO 17.6 (5.4-32.0); CHLORIDE 98 MMOL/L (99-107); CREATININE 1.08 MG/DL (0.60-1.10); GLUCOSE 119 MG/DL (70-104); SODIUM 133 MMOL/L (135-145); TOTAL CARBON DIOXIDE 26.1 MMOL/L (24-32); TOTAL PROTEIN 7.2 G/DL (6.4-8.2); eGFR 68 ML/MIN
[2022-12-13] MEDS ORDERED: normal saline 1000ml 1,000 ML IV ONE ×2 (08:25→11:05)
[2022-12-13] MEDS ORDERED: dexmedetomidin/NS 400mcg/100ml 100 ML IV SCH (11:00)
[2022-12-13] MEDS: normal saline 1000ml 1,000 ML IV SCH ×2 (11:05→19:46)
[2022-12-13] MEDS: DEXMEDETOMIDINE 400MCG in NORMAL SALINE 100ml IV SCH ×2 (11:27→23:59)
[2022-12-13] MEDS: insulin glargine (Lantus) pen - multi-dose SQ SCH (20:53)
[2022-12-13] MEDS ORDERED: risperiDONE 2mg tablet PEG SCH (21:00)
[2022-12-14] VITALS (23 sets, daily range): BP systolic 94–140; BP diastolic 56–87
[2022-12-14] MEDS: heparin, porcine 5000 units/ml vial SQ SCH ×2 (00:50→08:30)
[2022-12-14] MEDS: normal saline 1000ml 1,000 ML IV SCH ×2 (02:29→07:05)
[2022-12-14 02:30] LABS: ABG HCO3 23.1 mmol/L (22.0-26.0); ABG OXYGEN SATURATION 94.9 % (94-97); ABG PCO2 (T) 35.8 mmHg (35.0-48.0); ABG PO2 (T) 79.2 mmHg (75.0-100.0); ALLEN'S TEST POSITIVE; FCOHb 0.2 % (0.0-3.9); FMetHb 0.5 % (0.0-1.5); FO2Hb 94.2 % (94-97); PATIENT TEMPERATURE 36.9; PEEP 5 cm H2O; TOTAL HEMOGLOBIN 9.8 G/dl (14.0-17.9)
[2022-12-14] MEDS: mineral oil/petrolatum ophthal oint EACHEYE SCH ×2 (02:30→08:00)
[2022-12-14] MEDS: metoprolol tartrate 50mg tablet NG SCH ×2 (03:10→08:29)
--- NOTE | 2022-12-14 06:30 | NUR ---
Patient in room CICU 2007. I have received report from Susanna LAZAR and had the opportunity to ask questions and assume patient care.
[2022-12-14] MEDS: pantoprazole 40MG/NS 100ML BAG 100 ML IV SCH (08:21)
[2022-12-14] MEDS: folic acid 1mg/0.2ml inj IV SCH (08:29)
[2022-12-14] MEDS: MULTIVIT-MIN/FERROUS GLUCONATE 9 MG/15 ML LIQUID NG SCH (08:29)
[2022-12-14] MEDS: thiamine 100mg/ml 2ml inj. IV SCH (08:29)
[2022-12-14] MEDS: nystatin 15 GM powder TP SCH (08:30)
--- NOTE | 2022-12-14 10:07 | NUR ---
med linked note, [id number] precedex no admined, unclear if it was given on night guard
--- NOTE | 2022-12-14 10:52 | NUR ---
called Milagro Ribeiro to inform her that her has been accepted at [facility] [place]
--- NOTE | 2022-12-14 12:18 | NUR ---
labs, systems and meds reviewed patient has [facility]. d/c blood glucose checks as patients blood sugar has been stable
--- NOTE | 2022-12-14 15:24 | NUR ---
called report to sean LAZAR at [facility], labs, meds, and vital signs reviewed. All questions answered
--- NOTE | 2022-12-14 16:01 | NUR ---
patient picked up by [facility], transported with Abbi Haji, all belongings and transfer packet sent with patient
== END 2022-12-14 15:30 | DRG 4 ==
LOC: CICU 2S 12:16 → UNDOADMIN 12:16 → CICU 2S 17:46
PROVIDERS: ADMIT Internal Medicine Critical Care Medicine; ATTEND Internal Medicine Critical Care Medicine
PROC: 5A1955Z Respiratory Ventilation, Greater than 96 Consecutive Hours (ICD-10-PCS; principal; 2022-11-28)
PROC: 0BH17EZ Insertion of Endotracheal Airway into Trachea, Via Natural or Artificial Opening (ICD-10-PCS; 2022-11-28)
PROC: 05HY33Z Insertion of Infusion Device into Upper Vein, Percutaneous Approach (ICD-10-PCS; 2022-11-28)
PROC: 05HM33Z Insertion of Infusion Device into Right Internal Jugular Vein, Percutaneous Approach (ICD-10-PCS; 2022-11-28)
PROC: 4A10X4Z Monitoring of Central Nervous Electrical Activity, External Approach (ICD-10-PCS; 2022-12-03)
PROC: 0B110F4 Bypass Trachea to Cutaneous with Tracheostomy Device, Open Approach (ICD-10-PCS; 2022-12-11)
PROC: 0DH63UZ Insertion of Feeding Device into Stomach, Percutaneous Approach (ICD-10-PCS; 2022-12-11)
PROC: 5A09457 Assistance with Respiratory Ventilation, 24-96 Consecutive Hours, Continuous Positive Airway Pressure (ICD-10-PCS; 2022-12-13)
DX: A41.9 Sepsis, unspecified organism (principal); E43 Unspecified severe protein-calorie malnutrition; J96.01 Acute respiratory failure with hypoxia; R65.21 Severe sepsis with septic shock; J10.00 Influenza due to other identified influenza virus with unspecified type of pneumonia; F10.231 Alcohol dependence with withdrawal delirium; E87.20 Acidosis, unspecified; C95.90 Leukemia, unspecified not having achieved remission; G93.1 Anoxic brain damage, not elsewhere classified; J44.0 Chronic obstructive pulmonary disease with (acute) lower respiratory infection; N17.9 Acute kidney failure, unspecified; N39.0 Urinary tract infection, site not specified; Z66 Do not resuscitate; Z20.822 Contact with and (suspected) exposure to COVID-19; E86.0 Dehydration; E87.6 Hypokalemia; F03.90 Unspecified dementia, unspecified severity, without behavioral disturbance, psychotic disturbance, mood disturbance, and anxiety; I10 Essential (primary) hypertension; I48.91 Unspecified atrial fibrillation; R62.7 Adult failure to thrive; Z68.26 Body mass index [BMI] 26.0-26.9, adult; Z79.01 Long term (current) use of anticoagulants; Z79.899 Other long term (current) drug therapy; Z88.0 Allergy status to penicillin; Z88.2 Allergy status to sulfonamides
CPT/HCPCS: 36415; 36569; 36600; 70450; 70551; 71045; 76942; 80053; 80202; 81001; 81003; 82140; 82570; 82803; 82948; 83605; 83735; 83935; 84100; 84133; 84134; 84145; 84156; 84300; 84478; 85007; 85018; 85025; 85610; 85730; 87040; 87070; 87081; 87207; 87502; 87503; 87635; 92508; 92616; 94002; 94003; 94640; 94760; 94799; 95816; 97161; 97530; A4215; A4333; A4349; A4615; A4618; A4623; A4624; A4628; A5200; A6196; A6209; A6212; A6213; A6222; A6250; A6258; A6402; A6449; A7000; A7015; A7521; A7526; A9900; B4087; C1751; C9113; G0378; J0360; J0690; J0692; J0706; J1120; J1644; J1815; J1956; J2060; J2405; J2704; J2997; J3010; J3370; J3411; J3490; J7030; J7040; J7060; J7070; J7120; P9047; S0020

== ENCOUNTER 2023-05-28 12:10 | Emergency (ER) | payer MEDICARE, BC ==
[~2023-05-28] VITALS: Ht 170.2 cm; Wt 68.2 kg
[~2023-05-28 12:10] MED LIST: ALBU18HF2 PO; BACL-11 PO; BIMA2.5D EACHEYE; BOSU100T PO; BREX1TAB PO; DULO60CA65 PO; FLUT1BLS9 INH; IBUP-1986 PO; LIDO700A47 TOP; OXYC1TAB17 PO; TIOT18CA3 INH; ZOLP10TA PO
[2023-05-28 12:34] VITALS: BP 145/101
== END 2023-05-28 16:14 | disposition left against medical advice (07) ==
LOC: ER 12:10
DX: F41.9 Anxiety disorder, unspecified (principal); R45.88 Nonsuicidal self-harm; Z53.21 Procedure and treatment not carried out due to patient leaving prior to being seen by health care provider
CPT/HCPCS: 99281